=== PATIENT | male | born 1950 | race Caucasian/White ===

== ENCOUNTER 2024-02-04 15:03 | Emergency (ER) | payer MEDICARE, SELFPAY ==
[2024-02-04] VITALS (7 sets, daily range): BP systolic 73–114; BP diastolic 47–59; PULSE 63–105; RESP 18–20; TEMP 36.6; O2SAT 91–100
--- NOTE | ~2024-02-04 | CT_ITS ---
EXAMINATION: CT lumbar spine wo con DATE: 02/04/2024 15:46 INDICATION: Fall. Right low back pain. TECHNIQUE: Computed tomography (CT) of the lumbar spine was performed without intravenous contrast. A utomated exposure control and iterative reconstruction technique were employed. Exam dose: 505.06 mG y-cm total exam DLP. COMPARISON: None FINDINGS: Normal alignment the lumbar spine. No fracture or bone destruction, spondylolysis or spondy lolisthesis. Lumbar and lumbosacral interspaces appear relatively well preserved. There is degenerative spurring o f the vertebral bodies. No sacral fracture is noted. The sacroiliac joints are intact. No lumbar spine herniated disc or significant impingement upon the dural sac or spinal nerve roots is detected. Incidental note is extensive diverticulosis of the sigmoid colon colon. There is prominent abdominal aortic calcification, prominent calcification at the origin of the demetrius c artery, severe calcification of the origin and proximal aspect of the superior mesenteric artery. N o abdominal aortic aneurysm.. IMPRESSION: The lumbar spine fracture Reviewed, dictated and finalized at [facility] Reviewed, dictated and finalized at [facility]. RANCE RISK ANALYST IMPRESSION: The lumbar spine fracture
--- NOTE | ~2024-02-04 | CT_ITS ---
EXAMINATION: CT brain wo con DATE: 02/04/2024 15:47 INDICATION: Fall, struck right parietal area. TECHNIQUE: Computed tomography (CT) of the head was performed without intravenous contrast. The mA wa s adjusted according to patient size. Iterative reconstruction technique was employed. Exam dose: 68 1.00 mGy-cm total exam DLP. COMPARISON: None FINDINGS: There is a lucent lesion in the posterior right parietal bone with sclerotic margins, sugge sting benign process. No fracture or bone destruction of the cranial vault is noted otherwise. There is mild right parietal cephalohematoma. No coup or contrecoup intracranial injury is noted. No intracranial mass lesion or hemorrhage or cerebrovascular accident, midline shift or mass effect i s noted. There is mild central and cortical cerebral and cerebellar volume loss. No subdural or epidural hematoma. There is mild mucoperiosteal thickening of the left maxillary antrum. The paranasal sinuses and masto id air cells are otherwise normally developed and aerated. IMPRESSION: Small right parietal cephalohematoma; no skull fracture or acute intracranial finding Reviewed, dictated and finalized at [facility] Reviewed, dictated and finalized at [facility]. S DEVELOPMENT COORDINATOR IMPRESSION: Small right parietal cephalohematoma; no skull fracture or acute i ntracranial finding
[2024-02-04] MEDS: MORPHINE SULFATE (*CRX) 4 MG/ML INJ IM (15:58)
[2024-02-04] MEDS: KETOROLAC (*BKC) 60 MG/2 ML VIAL IM (15:59)
[2024-02-04] MEDS: Please add drug allergy info to patient profile. 1 EACH XX (16:00)
--- NOTE | 2024-02-04 16:04 | ED.FALL ---
HPI - Fall General Chief Complaint: Fall Stated Complaint: fall down 10 stairs, no loc Source: patient Mode of arrival: ambulatory Limitations: no limitations History of Present Illness HPI Narrative: patient is 73-year-old male with significant past medical history that presents today with multiple injuries from a fall. Patient states that he was walking down stairs and he fell and he was pulling a box and hit his head on the ground and hit the right side of his lumbar spine. To the left of his lumbar spine he has a giant hematoma has getting larger. He also has some concussion symptoms and he has a large hematoma to the left of the spine. he has also hematoma on the right side of his head along with some scratches and bruising around the right eye Orbital bone. MD complaint: fall Onset (ago): hour(s) Fall from: standing Fall witnessed: yes, by family Place fall occurred: home Loss of consciousness: none Length of LOC: second(s) Prolonged down time: no Symptoms prior to fall: none Context: tripped/slipped Location of injury: head Location of injury - extremities: Bilateral: hand Severity: moderate Severity scale (1-10): 6 Quality: stabbing and aching Associated symptoms (after fall): headache Related Data Home Medications ?Medication ?Instructions ?Recorded ?Confirmed ?Last Taken ?Type amlodipine 10 mg tablet mg 02/04/24 Unknown History atorvastatin 40 mg tablet mg 02/04/24 Unknown History escitalopram oxalate 10 mg tablet mg 02/04/24 Unknown History losartan 100 mg tablet mg 02/04/24 Unknown History meloxicam 15 mg tablet mg 02/04/24 Unknown History meloxicam 7.5 mg tablet mg 02/04/24 Unknown History metoprolol succinate 50 mg mg PO 02/04/24 Unknown History tablet,extended release 24 hr Allergies Allergy/AdvReac Type Severity Reaction Status Date / Time cats Allergy Mild Rash Uncoded 02/04/24 15:48 Review of Systems Review of Systems: All systems reviewed & are unremarkable except as noted in HPI and below Constitutional: Constitutional: Reports as per HPI Eyes: Eyes: Reports no additional eye complaints ENT: Reports system reviewed and no additional complaints, except as documented Cardiovascular: Cardiovascular: Reports no additional cardiovascular complaints Respiratory: Respiratory: Reports no additional respiratory complaints Gastrointestinal: Gastrointestinal: Reports no additional gastrointestinal complaints Genitourinary: Genitourinary: Reports no additional male genitourinary complaints Musculoskeletal: Musculoskeletal: Reports as per HPI, Reports back pain, Reports myalgias and Reports arthralgias Integumentary/Breasts: Skin/Breast: Reports system reviewed and no additional complaints, except as docu Neurologic: Reports as per HPI Psychiatric: Psychiatric: Reports no additional psychiatric complaints Endocrine: Endocrine: Reports no additional endocrine complaints Hematologic/Lymphatic: Hematologic/Lymphatic: Reports no additional hematologic/lymphatic complaints Allergic/Immunologic: Allergic/Immunologic: Reports no additional allergic/immunologic complaints Exam Const: General: healthy appearing Nutritional Appearance: well nourished Orientation/consciousness: patient oriented x3 HENMT: Head: hematoma ( right orbital area hematoma and small abrasion) Ears: external ears normal Face/Nose/Sinus: Normal external nose present Face and sinus: normal facial exam Eyes: Conjunctivae: conjunctivae normal Pupils: Equal, round and reactive pupils present EOM: EOMs intact bilaterally Neck: Neck: normal visual inspection Resp: Effort & Inspection: normal respiratory effort Cardio: Rate: regular rate Rhythm: regular rhythm GI: GI Palp: Yes Soft to palpation Back/Spine/Pelvis: Back: no CVA tenderness Skin: General skin exam: normal color Rashes: no rashes Wounds: no wounds Neuro: General: patient oriented x3 Cranial nerves: Yes Nystagmus not present Speech: normal speech Gait exam (Neuro): Normal gait present Extrem: General: normal to inspection Psych: Mental Status: mental status grossly normal Affect: normal affect Attitude: cooperative Course Vital Signs Vital signs: Vital Signs Temperature 97.9 F 02/04/24 15:04 Pulse Rate 105 H 02/04/24 15:04 Respiratory Rate 20 02/04/24 15:04 Blood Pressure 106/58 L 02/04/24 15:04 Pulse Oximetry 100 02/04/24 15:04 Oxygen Delivery Room Air 02/04/24 15:04 Temperature 97.9 F 02/04/24 15:04 Pulse Rate 63 02/04/24 16:47 Respiratory Rate 18 02/04/24 16:47 Blood Pressure 103/59 L 02/04/24 16:47 Pulse Oximetry 93 02/04/24 16:47 Oxygen Delivery Room Air 02/04/24 16:47 MDM - Fall MDM Narrative Medical decision making narrative: patient had a pretty bad fall on his the [place] large hematoma on the left side in between his ribs and his sacrum to the left of the lumbar spine. His bout of 10 x 10 area of hematoma. Will get CT lumbar spine so will get a good look at the hematoma plus his lumbar spine as well. He is having some spinal tenderness. Also do a head CT while were doing the CT is spine because he has a head injury around his right overall area he has a hematoma and hit his head when he fell down. Who was some morphine and Toradol for the pain. Differential Diagnosis Differential diagnosis: Likely concussion without loss of consciousness and other ( Fall) Medical Records Attestation: I reviewed the patient's medical records. Lab Data Attestation: I reviewed the patient's lab results. Discharge Plan Discharge Clinical Impression: Fall, Head injury, Injury of lumbar spine Patient Disposition: Home, Self-Care Condition: Stable Instructions: Contusion in Adults (ED) Patient Language: Martiniquais Prescriptions: New hydrocodone-acetaminophen 5-325 mg tablet 1 tablet PO Q8H PRN (Reason: pain) Qty: 14 0RF ibuprofen 800 mg tablet 800 mg PO TID PRN (Reason: pain) Qty: 30 0RF No Action atorvastatin 40 mg tablet metoprolol succinate 50 mg tablet extended release 24 hr PO meloxicam 15 mg tablet meloxicam 7.5 mg tablet amlodipine 10 mg tablet losartan 100 mg tablet escitalopram oxalate 10 mg tablet Follow-up/Referrals: Jinny,Rashi Burgos MD [Primary Care Provider] - Time of Disposition: 17:10
[2024-02-04] MEDS: SODIUM CHLORIDE 0.9% IV 1,000 ML 999 ML IV CONT (16:37)
== END 2024-02-04 17:15 | disposition home or self-care (01) ==
PROVIDERS: Emergency Provider Family Medicine; PCP Family Medicine
DX: S39.92XA Unspecified injury of lower back, initial encounter (principal); S09.90XA Unspecified injury of head, initial encounter; W10.9XXA Fall (on) (from) unspecified stairs and steps, initial encounter
CPT/HCPCS: 70450; 72131; 96360; 96372; 99284; J1885; J2270; J7030

== ENCOUNTER 2024-02-13 09:54 | Emergency (ER) | payer MEDICARE, SELFPAY ==
[2024-02-13] VITALS (49 sets, daily range): BP systolic 91–144; BP diastolic 59–98; PULSE 100–141; RESP 11–23; TEMP 36.6; O2SAT 88–97
--- NOTE | ~2024-02-13 | CT_ITS ---
Clinical Indication: Status post fall CT Scan of the Chest, Abdomen, and Pelvis without Contrast: Technique: Contiguous sections were acquired throughout the chest, abdomen, and pelvis without IV con trast administration. Dose reduction technique was used on this scan by utilizing automated exposure control and iterative reconstruction technique. The dose-length product (DLP) was 584.60 mGy-cm. Findings: There is no evidence of any significant mediastinal, hilar or axillary lymphadenopathy. The mediastin al soft tissues appear normal. Minimal pericardial effusion. Moderate to large bilateral pleural effusions are present. There is mild bibasilar atelectatic change . There is diffuse interstitial thickening, compatible with interstitial pulmonary edema. Few minimal groundglass opacities are also compatible with minimal pulmonary edematous change. There are acute fractures the right eighth, ninth, 10th, 11th ribs. There is segmental fracture of th e right 10th rib. The liver, spleen, pancreas, adrenals and kidneys are within normal limits. Small calcified gallstone present. There are atherosclerotic calcifications of the aorta. No lymphadenopathy. No bowel obstruction or bowel wall thickening. There is no evidence to suggest acute appendicitis. Th ere is mild central mesenteric haziness with shotty lymph nodes. Urinary bladder is unremarkable. No pelvic mass seen. No ascites. Impression: Acute fractures of right eighth, ninth, 10th, and 11th ribs, as detailed above. Moderate to large bilateral pleural effusions with interstitial and alveolar pulmonary edema. Cholelithiasis. Mild mesenteric panniculitis. Reviewed, dictated and finalized at [facility]. O TAPE DUPLICATOR Impression: Acute fractures of right eighth, ninth, 10th, and 11th ribs, as detailed above. Moderate to large bilateral pleural effusions with interstitial and alveolar pu lmonary edema. Cholelithiasis. Mild mesenteric panniculitis.
--- NOTE | 2024-02-13 10:25 | ED_ITS ---
HPI - General Adult General Chief complaint: Shortness of Breath/Dyspnea Stated complaint: shortness of breath Time Seen by Provider: 02/13/24 10:01 History of Present Illness HPI narrative: patient is a 73-year-old white male fell down stairs 10 days ago was seen in the emergency department on 02/04/2024 and bruising his side and a hematoma on his head CT of his head showed just a cephalhematoma and lumbar CT was negative. Patient started getting short of breath last 3 days hurts to lay flat or more likely it is short of breath when he is laying flat. Gets dyspnea on exertion when he is trying to carry groceries a asked to stop to catch his breath is normal +2 swelling of his lower extremities. since being seen in the emergency room patient has developed bruising over the front of his abdomen the swelling on the back of his right lumbar area as decreased in size denies any cough when he takes a deep breath he has some right lateral chest wall pain. He is always has a runny nose he has been a little constipated since taking pain medicine he has had no swelling in his +2 edema in his lower extremities. Feels like he can not take a deep breath denies any fever sore throat problems voiding eating or drinking bleeding. Denies any dizziness or lightheadedness palpitations weakness or numbness. Does not have any history of heart lung kidney or liver disease or thyroid disease says he has arthritis all over. Denies any other Related Data Home Medications ?Medication ?Instructions ?Recorded ?Confirmed ?Last Taken ?Type amlodipine 10 mg tablet 10 mg PO DAILY 02/04/24 02/13/24 Unknown History atorvastatin 40 mg tablet 40 mg PO QPM 02/04/24 02/13/24 Unknown History escitalopram oxalate 10 mg tablet 10 mg PO DAILY 02/04/24 02/13/24 Unknown History losartan 100 mg tablet 100 mg PO DAILY 02/04/24 02/13/24 Unknown History meloxicam 15 mg tablet mg 02/04/24 Unknown History meloxicam 7.5 mg tablet mg 02/04/24 Unknown History metoprolol succinate 50 mg 50 mg PO DAILY 02/04/24 02/13/24 Unknown History tablet,extended release 24 hr Allergies Allergy/AdvReac Type Severity Reaction Status Date / Time cats Allergy Mild Rash Uncoded 02/13/24 12:58 Review of Systems 2 Review of Systems: All systems reviewed & are unremarkable except as noted in HPI and below PMFSH Comments no history of atrial fib or heart disease or lung disease Exam 2 Narrative: ?White male patient with Mild distress.? Head normocephalic, atraumatic.? Eyes conjunctiva pink sclera nonicteric.? Extraocular movements are intact.? Ears externally normal.? Oropharynx is clear with moist mucous membranes without exudates.? Neck is supple nontender no lymphadenopathy.? Back. Right paralumbar swelling and bruising. No midline tenderness. Right posterior scapular chest wall bruising was mild tenderness. Lungs decreased breath sounds posteriorly bases..? Heart is tachycardic rate with irregularly irregular heart rhythm. without murmurs gallops or rubs.? Chest wall nontender. Abdomen is soft and nontender no hepatosplenomegaly or masses no CVA tenderness no abdominal bruits. patient has extensive bruising over the anterior is abdomen which looks old.? Extremities no cyanosis clubbing But with +2 pitting edema of his lower extremities.? Skin is warm and dry without rashes or lesions.? Neurological patient is alert and oriented x4.? Motor and sensory grossly intact.? Gait is normal. Course Vital Signs Vital signs: Vital Signs Temperature 36.6 C 02/13/24 09:54 Pulse Rate 119 H 02/13/24 09:54 Respiratory Rate 16 02/13/24 09:54 Blood Pressure 134/75 02/13/24 09:54 Pulse Oximetry 92 02/13/24 09:54 Oxygen Delivery Nasal Cannula 02/13/24 09:54 Oxygen Flow Rate 2 02/13/24 09:54 Temperature 36.6 C 02/13/24 09:54 Pulse Rate 111 H 02/13/24 22:26 Respiratory Rate 16 02/13/24 22:01 Blood Pressure 128/80 02/13/24 22:26 Pulse Oximetry 94 02/13/24 22:01 Oxygen Delivery Nasal Cannula 02/13/24 22:01 Oxygen Flow Rate 4 02/13/24 22:01 Medical Decision Making [facility] Narrative Medical decision making narrative: ?Patient placed in room: Three with his ? History and physical was performed. H&H 8.4 and 25.3 with normal WBC and platelet, coags were normal, D-dimer is 2.33.? BUN was 36 creatinine 1.54 GFR was 45 Osmo 303 the rest of CMP was normal. Troponin was elevated at 62.3 and proBNP was [address] scan of chest abdomen and pelvis without contrast Acute fractures of the right 8th 9th 10th and 11th rib moderate to large bilateral pleural effusions with interstitial and alveolar pulmonary edema cholelithiasis mild mesenteric panniculitis Independent Historian: External Source Review: Differential Dx includes but not limited to: Medications were Reviewed: Medications given: 10 mg of Cardizem IV bolus and then a Cardizem drip at 5 milligrams/hour Independently Interpreted by me:EKG showed atrial fib with rapid ventricular response left bundle branch block interventricular conduction delay at a rate of 124 a normal axis impression abnormal EKG as independently interpreted by me. Shared decision Making: Social Situation Impacting Patients Care: Discussed with hospitalist at [facility] in [facility] accept transfer they will call us with the bed when available. DISCHARGE DIAGNOSIS: congestive heart failure with bilateral pleural effusion atrial fib new onset with RVR anemia DISPOSITION : transfer CONDITION AT DISCHARGE: stable Vital Signs Vital Signs: Vital Signs Temperature 36.6 C 02/13/24 09:54 Pulse Rate 119 H 02/13/24 09:54 Respiratory Rate 16 02/13/24 09:54 Blood Pressure 134/75 02/13/24 09:54 Pulse Oximetry 92 02/13/24 09:54 Oxygen Delivery Nasal Cannula 02/13/24 09:54 Oxygen Flow Rate 2 02/13/24 09:54 Temperature 36.6 C 02/13/24 09:54 Pulse Rate 111 H 02/13/24 22:26 Respiratory Rate 16 02/13/24 22:01 Blood Pressure 128/80 02/13/24 22:26 Pulse Oximetry 94 02/13/24 22:01 Oxygen Delivery Nasal Cannula 02/13/24 22:01 Oxygen Flow Rate 4 02/13/24 22:01 Lab Data 02/13/24 10:39 02/13/24 10:39 Labs: Lab Results 02/13/24 02/13/24 Range/Units 10:39 14:11 WBC 7.2 (4.8-10.8) K/mm3 RBC 2.65 L (4.70-6.10) M/mm3 Hgb 8.4 L (12.4-15.3) g/dL Hct 25.3 L (37.0-46.0) % MCV 95.5 (78.0-102.0) fL MCH 31.7 H (27.0-31.0) pg MCHC 33.2 (32-36) g/dL RDW 13.3 (11.6-14.4) % Plt Count 278 (150-420) K/mm3 MPV 9.2 (8.7-11.0) fl PT 11.9 (9.50-12.1) Seconds INR 1.1 APTT 30.1 (23.9-30.70) Sec D-Dimer 2.33 H* (0.19-0.50) mg/L Sodium 142 (136-145) mmol/L Potassium 4.0 (3.5-5.1) mmol/L Chloride 105 (98-108) mmol/L Carbon Dioxide 24 (21-32) mmol/L Anion Gap 13 H (4-12) mmol/L BUN 36 H (7-18) mg/dL Creatinine 1.54 H (0.70-1.30) mg/dL Estim Creat Clear Calc 35 ml/min Estimated GFR 45 L (59 - ) Glucose 112 H (70-99) mg/dL Calculated Osmolality 303 H (285-295) mOsm/kg Calcium 9.2 (8.5-10.1) mg/dL Total Bilirubin 0.6 (0.00-1.00) mg/dL AST 15 (15-37) U/L ALT 18 (16-63) U/L Alkaline Phosphatase 73 (46-116) U/L Troponin I 62.3 H* 71.2 H* (0.00-60.4) ng/L NT-Pro-B Natriuret Pep 4138 H (0-125) pg/mL Total Protein 7.4 (6.4-8.2) g/dL Albumin 3.3 L (3.4-5.0) g/dL TSH 1.74 (0.36-3.74) uIU/mL Discharge Plan Discharge Clinical Impression: Atrial fibrillation with rapid ventricular response, Bilateral pleural effusion, Multiple fractures of rib involving four or more ribs Congestive heart failure Qualifiers: Heart failure type: unspecified Heart failure chronicity: unspecified Qualified Code(s): I50.9 - Heart failure, unspecified Anemia Qualifiers: Anemia type: unspecified type Qualified Code(s): D64.9 - Anemia, unspecified Patient Disposition: Acute Care Hospital Condition: Stable Additional Instructions: Transferred to [facility] via ground ambulance Patient Language: Azerbaijani Prescriptions: No Action atorvastatin 40 mg tablet 40 mg PO QPM metoprolol succinate 50 mg tablet extended release 24 hr 50 mg PO DAILY meloxicam 15 mg tablet meloxicam 7.5 mg tablet amlodipine 10 mg tablet 10 mg PO DAILY losartan 100 mg tablet 100 mg PO DAILY escitalopram oxalate 10 mg tablet 10 mg PO DAILY hydrocodone-acetaminophen 5-325 mg tablet 1 tablet PO Q8H PRN (Reason: pain) Qty: 14 0RF ibuprofen 800 mg tablet 800 mg PO TID PRN (Reason: pain) Qty: 30 0RF Follow-up/Referrals: UNKNOWN,DOCTOR [Non-Staff] - Time of Disposition: 22:32
--- NOTE | 2024-02-13 10:31 | ECG_ITS ---
Test Date: 2024-02-13 10:46:27 Measurements Intervals [place] Rate: 124 P: 0 NV: 0 QRS: 19 QRSD: 154 T: 71 QT: 336 QTc: 483 Interpretive Statements ATRIAL FIBRILLATION WITH RAPID VENTRICULAR RESPONSE LEFT BUNDLE BRANCH BLOCK No previous ECG available for comparison Electronically Signed On 02-13-2024 22:45:16 HEAD OF SALES PROMOTION by Nader León M.D.
[2024-02-13 10:45] LABS: Hematocrit 25.3 % (37.0-46.0); Hemoglobin 8.4 g/dL (12.4-15.3); Mean Corpuscular HGB Conc 33.2 g/dL (32-36); Mean Corpuscular Hemoglobin 31.7 pg (27.0-31.0); Mean Corpuscular Volume 95.5 fL (78.0-102.0); Mean Platelet Volume 9.2 fl (8.7-11.0); Platelet Count Result 278 K/mm3 (150-420); Red Blood Count 2.65 M/mm3 (4.70-6.10); Red Cell Distribution Width 13.3 % (11.6-14.4); White Blood Count 7.2 K/mm3 (4.8-10.8)
[2024-02-13 11:03] LABS: INR 1.1; Partial Thromboplastin Time 30.1 Sec (23.9-30.70); Prothrombin Time 11.9 Seconds (9.50-12.1)
[2024-02-13 11:06] LABS: D Dimer 2.33 mg/L (0.19-0.50)
[2024-02-13 11:14] LABS: Alanine Aminotransferase 18 U/L (16-63); Anion Gap 13 mmol/L (4-12); Aspartate Amino Transferase 15 U/L (15-37); Bilirubin,Total 0.6 mg/dL (0.00-1.00); Blood Urea Nitrogen 36 mg/dL (7-18); Calcium 9.2 mg/dL (8.5-10.1); Carbon Dioxide 24 mmol/L (21-32); Chloride 105 mmol/L (98-108); Estimated CRCL calculation 35 ml/min; Estimated Glomerular Filt Rate 45; Glucose 112 mg/dL (70-99); Osmolality Calculated 303 mOsm/kg (285-295); Sodium 142 mmol/L (136-145); Troponin I 62.3 ng/L (0.00-60.4)
[2024-02-13 11:15] LABS: Albumin Level 3.3 g/dL (3.4-5.0); Alkaline Phosphatase 73 U/L (46-116); Total Protein 7.4 g/dL (6.4-8.2)
[2024-02-13 11:17] LABS: NT Pro B Type Natriuretic Pept 4138 pg/mL (0-125)
[2024-02-13 11:22] LABS: Thyroid Stimulating Hormone 1.74 uIU/mL (0.36-3.74)
--- NOTE | 2024-02-13 11:23 | PC.NURSE ---
Patient taken down to CT
--- NOTE | 2024-02-13 11:46 | PC.NURSE ---
patient back in room from CT.
[2024-02-13] MEDS: dilTIAZem HCl INJ 25 MG/5 ML VIAL 20 MG IV PUSH (11:50)
[2024-02-13 14:37] LABS: Troponin I 71.2 ng/L (0.00-60.4)
[2024-02-13] MEDS: dilTIAZem 100 MG/100 ML 100 MG/100 ML BAG IV CONT ×2 (14:39→22:26)
--- NOTE | 2024-02-13 15:03 | PC.NURSE ---
patient provided meal tray per ERP request
--- NOTE | 2024-02-13 17:03 | PC.NURSE ---
PER ERP decrease Cardizem drip down to 3mg/hr
--- NOTE | 2024-02-13 18:54 | PC.NURSE ---
ASSUMED CARE. REPORT RECEIVED FROM GALILEA ROLLINS
--- NOTE | 2024-02-13 19:38 | PC.NURSE ---
PATIENT HAS BEEN MOVED FROM ROOM 7 TO ROOM 1. PATIENT CONTINUES TO HAVE OXYGEN AT 15L NRB.
--- NOTE | 2024-02-13 19:41 | PC.NURSE ---
PATIENT APPEARS TO BE SLEEPING. RESP EVEN AND UNLABORED. CALL LIGHT IN REACH.
--- NOTE | 2024-02-13 21:49 | PC.NURSE ---
REQUESTED ANOTHER CARDIZEM BAG FOR INFUSION FROM DR JIMENEZ
--- NOTE | 2024-02-13 22:30 | PC.NURSE ---
UPDATED PATIENT ON TRANSFER
--- NOTE | 2024-02-13 22:50 | PC.NURSE ---
patient started to develope stridor. er provider notified. order for duoneb given
--- NOTE | 2024-02-14 | ECG_ITS ---
Test Date: 2024-02-14 00:08:24 Measurements Intervals [place] Rate: 126 P: 0 NC: 0 QRS: 4 QRSD: 149 T: 120 QT: 335 QTc: 485 Interpretive Statements ATRIAL FIBRILLATION WITH RAPID VENTRICULAR RESPONSE LEFT BUNDLE BRANCH BLOCK Compared to ECG 02/13/2024 10:46:27 NO SIGNIFICANT CHANGES Electronically Signed On 02-16-2024 12:24:38 ENVIRONMENTAL ENGINEER SCIENTIST by Warren Alarcon M.D.
== END 2024-02-13 23:28 | disposition short-term general hospital (02) ==
PROVIDERS: Emergency Provider Emergency Medicine; PCP Family Medicine
DX: I50.9 Heart failure, unspecified (principal); J90 Pleural effusion, not elsewhere classified; I48.91 Unspecified atrial fibrillation; D64.9 Anemia, unspecified; R06.02 Shortness of breath; S22.41XD Multiple fractures of ribs, right side, subsequent encounter for fracture with routine healing; W10.9XXD Fall (on) (from) unspecified stairs and steps, subsequent encounter
CPT/HCPCS: 36415; 71250; 74176; 80053; 83880; 84443; 84484; 85027; 85380; 85610; 85730; 93005; 96365; 96366; 96376; 99285

== ENCOUNTER 2024-02-17 00:06 | Emergency (ER) | payer MEDICARE, SELFPAY ==
[2024-02-17] VITALS (22 sets, daily range): BP systolic 62–142; BP diastolic 48–78; PULSE 71–87; RESP 12–23; TEMP 36.4–36.6; O2SAT 92–100
--- NOTE | ~2024-02-17 | CT_ITS ---
CT chest abdomen pelvis w con Ordering provider: Samuel Cash MD History: 73 years Male with . Shock . Comparison: February 13, 2024 Technique: CT chest with IV contrast. CT abdomen and pelvis CT abdomen and pelvis with IV and with or al contrast. Radiation reduction technique utilized.The dose-length product was 963.98 mGy-cm. 100 mL Omnipaque 350 was given IV. FINDINGS: CHEST: --VISUALIZED THORACIC INLET: Normal. --MEDIASTINUM: Aorta/coronary arteries: Mild atheromatous disease. Heart/other: The heart is not enlarged. Lymph nodes: No mediastinal or hilar adenopathy. --LUNGS: No pulmonary nodules or masses. Large right pleural effusion with adjacent atelectasis which is increased compared to previous study. Increased density seen in the effusion which may indicate b lood products.0. Minimal left pleural effusion with adjacent atelectasis... No pneumothorax. --MUSCULOSKELETAL: Soft tissues: The superficial soft tissues are normal. Bones: Age appropriate degenerative changes of the spine. No suspicious bony lytic or sclerotic lesio ns. Multiple acute rib fractures are seen in the right lower thorax. Old healed rib fractures are see n in the right upper thorax. Opacification in the anterior longitudinal ligament is seen. Ankylosing spondylitis is not excluded. ABDOMEN/PELVIS: --MUSCULOSKELETAL: Bones: Age appropriate degenerative changes of the spine. No suspicious bony lytic or sclerotic lesio ns. Bilateral sacroiliitis with fusion seen bilaterally bilateral hip osteoarthritic changes. Superficial soft tissues: Bilateral fat containing inguinal hernias. Otherwise, The superficial soft tissues are normal. --UPPER ABDOMINAL ORGANS: Liver: Fat infiltration. Gallbladder: Cholelithiasis. Spleen: Normal. Stomach/duodenum: Normal. Pancreas: Normal. Adrenals: Normal. Kidneys: Normal. --PELVIC ORGANS: The bladder shows slightly thickened wall. No bladder stones. --BOWEL AND MESENTERY: Colon: No evidence of diverticulitis. Slightly thickened wall of the sigmoid colon is seen. Colitis i s not excluded.. Normal appendix. Small Bowel: Normal. No obstruction. Peritoneum/mesentery: No free air or free fluid. No mesenteric lymphadenopathy. --RETROPERITONEUM: Mild atheromatous disease of the abdominal aorta. No retroperitoneal lymphadenop athy. IMPRESSION: CHEST: Right large pleural effusion with adjacent atelectasis. Minimal left pleural effusion. ABDOMEN/PELVIS: 1. Fat infiltration of the liver. 2. Cholelithiasis. 3. Slightly thickened wall of the sigmoid colon which may indicate colitis. Follow-up and clinical c orrelation advised. Reviewed, dictated and finalized at location A. NER ANIMAL IMPRESSION: CHEST: Right large pleural effusion with adjacent atelectasis. Minimal left pleural effusion. ABDOMEN/PELVIS: 1. Fat infiltration of the liver. 2. Cholelithiasis. 3. Slightly thickened wall of the sigmoid colon which may indicate colitis. Fo llow-up and clinical correlation advised.
--- NOTE | ~2024-02-17 | XR_ITS ---
XR chest 1V portable DATE: 02/17/2024 01:43 INDICATION: Weakness TECHNIQUE: Portable upright AP chest on 02/17/2024 at 0141 hours COMPARISON: 02/13/2024 CT chest abdomen pelvis FINDINGS: Heart size appears within normal range. There is aortic arch calcification. There are infiltrates in the mid and lower lung zones and mild bilateral pleural effusions, right gre ater than left. Pulmonary vascularity appears mildly prominent. No pneumothorax. Osteopenia. Multiple recent right rib fractures are again noted. IMPRESSION: Multiple recent right rib fractures Mild pulmonary vascular congestion, bilateral pleural effusions. Reviewed, dictated and finalized at location A. R RELATIONS COORDINATOR
--- NOTE | ~2024-02-17 | CT_ITS ---
CT brain wo con Ordering provider: Samuel Cash MD History: 73 years Male with . Recent trauma . Comparison: February 04, 2024 Technique: CT of the head without contrast. Radiation reduction technique utilized.The dose-length product was 681 mGy-cm. FINDINGS: BRAIN PARENCHYMA AND CSF SPACES: Mild leukoaraiosis and diffuse cortical atrophy. Mild atheromatous d isease. Mild ventricular dilatation. No midline shift, mass effect or hemorrhage. The brain parenchyma and CSF spaces are otherwise norm al. VISUALIZED PARANASAL SINUSES: Well aerated. MASTOIDS: Well aerated. BONES: Sclerotic lesions seen in the right parietal area unchanged. Otherwise,. The bones appear inta ct. SOFT TISSUES: Visualized nasopharynx is normal. Superficial soft tissues are normal. IMPRESSION: No acute intracranial findings. Reviewed, dictated and finalized at location A. 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
--- NOTE | 2024-02-17 00:30 | ECG_ITS ---
Test Date: 2024-02-17 00:34:16 Measurements Intervals [place] Rate: 71 P: 60 LA: 180 QRS: -49 QRSD: 121 T: 55 QT: 437 QTc: 476 Interpretive Statements SINUS RHYTHM POSSIBLE LEFT ATRIAL ENLARGEMENT [-0.1mV P WAVE IN V1/V2] POSSIBLE RIGHT VENTRICULAR CONDUCTION DELAY [RSR (QR) IN V1/V2] LEFT ANTERIOR FASCICULAR BLOCK [QRS AXIS <= -45, QR IN I, RS IN II] POSSIBLE SEPTAL MYOCARDIAL INFARCTION , OF INDETERMINATE AGE [30 ms Q WAVE IN V1/V2] MODERATE T-WAVE ABNORMALITY, CONSIDER ANTERIOR ISCHEMIA [-0.1+ mV T WAVE IN V3/V4] Compared to ECG 02/14/2024 00:08:24 Atrial fibrillation no longer present Left bundle-branch block no longer present Electronically Signed On 02-20-2024 17:53:24 BACK SIZER by Warren Alarcon M.D.
--- NOTE | 2024-02-17 00:34 | PC.NURSE ---
due to pt blood pressure upon arrival edp dr. olmstead vorb 1L NS at a bolus rate of 999mls/ hour. this rn used closed loop communication to confirm route. dose. patient. time. medication. edp aysha saldana verbalized confirmation.
[2024-02-17] MEDS: SODIUM CHLORIDE 0.9% IV 1,000 ML 999 ML IV CONT (00:36)
--- NOTE | 2024-02-17 00:39 | PC.NURSE ---
upon patient arrival to ed patient had 2 large solid bowel movements. patient aware when he is defecating at this time.
--- NOTE | 2024-02-17 01:01 | ED_ITS ---
HPI - General Adult General Chief complaint: Chest Pain Stated complaint: CP, SYNCOPAL EPISODE Time Seen by Provider: 02/17/24 00:23 History of Present Illness HPI narrative: Patient 73-year-old gentleman who presents emergency department with chief complaint of chest discomfort shortness of breath and palpitations. Patient was just discharged from [facility] yesterday the patient reports that this evening he had an episode where he felt as though his heart was beating fast the patient had some tightness in his chest and then reports that he felt as though he was going to pass out. EMS was called and the patient was found to be hypotensive and was brought to the closest facility Related Data Home Medications ?Medication ?Instructions ?Recorded ?Confirmed ?Last Taken ?Type amlodipine 10 mg tablet 10 mg PO DAILY 02/04/24 02/13/24 Unknown History atorvastatin 40 mg tablet 40 mg PO QPM 02/04/24 02/13/24 Unknown History escitalopram oxalate 10 mg tablet 10 mg PO DAILY 02/04/24 02/13/24 Unknown History losartan 100 mg tablet 100 mg PO DAILY 02/04/24 02/13/24 Unknown History meloxicam 15 mg tablet mg 02/04/24 Unknown History meloxicam 7.5 mg tablet mg 02/04/24 Unknown History metoprolol succinate 50 mg 50 mg PO DAILY 02/04/24 02/13/24 Unknown History tablet,extended release 24 hr Allergies Allergy/AdvReac Type Severity Reaction Status Date / Time cats Allergy Mild Rash Uncoded 02/13/24 12:58 Review of Systems 2 Review of Systems: A 10 system review of systems was completed on the patient and is negative except for what is stated in the HPI. Nursing and ancillary documentation was reviewed. Exam 2 Narrative: GENERAL: Well-appearing, well-nourished, and in no acute distress. HEAD: Normocephalic, atraumatic. EYES: PERRLA and EOMI. ENT: Nares clear, no rhinorrhea or epistaxis. Mucous membranes moist. NECK: Supple. CHEST: Clear to auscultation. No respiratory distress. HEART: Regular rate and rhythm. No murmur heard. Normal peripheral pulses. ABDOMEN: Soft, nontender, nondistended, normal active bowel sounds. EXTREMITIES: Normal range of motion. No edema. SKIN: Warm, dry, no rash. NEURO: No focal deficits. Alert and oriented x3. PSYCH: Normal mood and affect. Course Vital Signs Vital signs: Vital Signs Temperature 36.4 C 02/17/24 00:05 Pulse Rate 72 02/17/24 00:05 Respiratory Rate 20 02/17/24 00:05 Blood Pressure 62/48 L 02/17/24 00:05 Pulse Oximetry 99 02/17/24 00:05 Oxygen Delivery Room Air 02/17/24 00:05 Temperature 36.4 C 02/17/24 00:05 Pulse Rate 81 02/17/24 04:40 Respiratory Rate 15 02/17/24 04:40 Blood Pressure 128/74 02/17/24 04:40 Pulse Oximetry 94 02/17/24 04:40 Oxygen Delivery Room Air 02/17/24 00:33 Medical Decision Making MDM Narrative Medical decision making narrative: Differential diagnosis includes pneumonia, pleural effusion, hypovolemia, CT scan of the chest showed a increase in size of the pleural effusion with possible blood within the fluid. There was no active extravasation of contrast. The patient was fluid resuscitated in the emergency department and is doing much better at this time hemoglobin is 7.2 this is actually lower than whenever he was seen at [facility] on the case was discussed with Dr. Nurse lovelace and was accepted back to [facility]. COVID flu and RSV were negative Vital Signs Vital Signs: Vital Signs Temperature 36.4 C 02/17/24 00:05 Pulse Rate 72 02/17/24 00:05 Respiratory Rate 20 02/17/24 00:05 Blood Pressure 62/48 L 02/17/24 00:05 Pulse Oximetry 99 02/17/24 00:05 Oxygen Delivery Room Air 02/17/24 00:05 Temperature 36.4 C 02/17/24 00:05 Pulse Rate 81 02/17/24 04:40 Respiratory Rate 15 02/17/24 04:40 Blood Pressure 128/74 02/17/24 04:40 Pulse Oximetry 94 02/17/24 04:40 Oxygen Delivery Room Air 02/17/24 00:33 Lab Data 02/17/24 01:49 02/17/24 01:49 Labs: Lab Results 02/17/24 Range/Units 01:49 WBC 12.6 H (4.5-10.0) K/mm3 RBC 2.26 L (4.6-6.20) M/mm3 Hgb 7.2 L (14.0-18.0) g/dL Hct 21.9 L (42.0-52.0) % MCV 96.9 (80-100) fl MCH 31.9 (26-34) pg MCHC 32.9 (32-36) g/dl RDW 13.5 (11.5-14.5) % Plt Count 287 (150-375) k/mm3 MPV 10.0 (7.4-10.4) fl Immature Gran % (Auto) 0.6 H (0-0.5) % Neut % (Auto) 87.3 H (45.5-73.1) % Lymph % (Auto) 4.3 L (18.3-44.2) % [place] % (Auto) 6.3 (2.6-8.5) % Eos % (Auto) 1.3 (0-4.4) % Baso % (Auto) 0.2 (0.2-1.2) % Lymph # (Auto) 0.54 L (0.9-3.2) K/mm3 [place] # (Auto) 0.8 H (0.1-0.6) K/mm3 Eos # (Auto) 0.2 (0-0.3) K/mm3 Baso # (Auto) 0.0 (0.0-0.1) K/mm3 Abs Immat Gran (auto) 0.08 H (0.00-0.031) K/mm3 Absolute Neuts (auto) 11.1 H (1.3-6.7) K/mm3 Absolute Nucleated RBC 0.000 (0.0-0.012) K/mm3 Nucleated RBC % 0.0 (0.0-0.2) % Platelet Estimate Slightly increased (Adequate) Hypochromasia 1+ Anisocytosis 1+ Schistocytes None seen PT 16.2 H (11.1-14.7) Seconds INR 1.3 APTT 29.5 (22.3-36.8) Seconds Sodium 136 L (137-145) mmol/L Potassium 4.4 (3.4-5.0) mmol/L Chloride 109 H (98-107) mmol/L Carbon Dioxide 22 (22-30) mmol/L Anion Gap 5 (4-12) mmol/L BUN 28 H (9-20) mg/dL Creatinine 1.20 (0.7-1.3) mg/dL Estim Creat Clear Calc 44 ml/min Estimated GFR 59 (59 - ) Glucose 124 H (65-110) mg/dL Lactic Acid 2.5 H (0.7-2.0) mmol/L Calcium 8.6 (8.4-10.2) mg/dL Magnesium 1.9 (1.6-2.3) mg/dL Total Bilirubin 0.5 (0.2-1.3) mg/dL AST 21 (17-59) U/L ALT 14 (6-50) U/L Alkaline Phosphatase 67 (38-126) U/L Troponin I 0.048 H* (0.000-0.034) ng/mL NT-Pro-B Natriuret Pep 1230 H (19.9-100) pg/mL Total Protein 6.0 L (6.3-8.2) g/dL Albumin 3.3 L (3.5-5.1) g/dL Lipase 118 (23-300) U/L Influenza A (RT-PCR) Negative (Negative) Influenza B (RT-PCR) Negative (Negative) RSV (RT-PCR) Negative (Negative) SARS-CoV-2 RNA (RT-PCR) Negative (Negative) Critical Care Time Critical Care Time Critical Care Time: Yes Total Critical Care Time: 30 Discharge Plan Discharge Clinical Impression: Near syncope, Hypovolemia, Pleural effusion, Multiple fractures of ribs Patient Disposition: Acute Care Hospital Condition: Stable Patient Language: French Prescriptions: No Action atorvastatin 40 mg tablet 40 mg PO QPM metoprolol succinate 50 mg tablet extended release 24 hr 50 mg PO DAILY meloxicam 15 mg tablet meloxicam 7.5 mg tablet amlodipine 10 mg tablet 10 mg PO DAILY losartan 100 mg tablet 100 mg PO DAILY escitalopram oxalate 10 mg tablet 10 mg PO DAILY hydrocodone-acetaminophen 5-325 mg tablet 1 tablet PO Q8H PRN (Reason: pain) Qty: 14 0RF ibuprofen 800 mg tablet 800 mg PO TID PRN (Reason: pain) Qty: 30 0RF Follow-up/Referrals: Aung Hernandez DO [Primary Care Provider] - Time of Disposition: 05:31
[2024-02-17 02:01] LABS: Basophils Percent Auto 0.2 % (0.2-1.2); Eosinophils Absolute Auto 0.2 K/mm3 (0-0.3); Eosinophils Percent Auto 1.3 % (0-4.4); Hematocrit 21.9 % (42.0-52.0); Hemoglobin 7.2 g/dL (14.0-18.0); Immature Granulocyte Absolute 0.08 K/mm3 (0.00-0.031); Immature Granulocyte Percent A 0.6 % (0-0.5); Lymphocytes Absolute Auto 0.54 K/mm3 (0.9-3.2); Lymphocytes Percent Auto 4.3 % (18.3-44.2); Mean Corpuscular HGB Conc 32.9 g/dl (32-36); Mean Corpuscular Hemoglobin 31.9 pg (26-34); Mean Corpuscular Volume 96.9 fl (80-100); Monocytes Absolute Auto 0.8 K/mm3 (0.1-0.6); Monocytes Percent Auto 6.3 % (2.6-8.5); Neutrophils Absolute Auto 11.1 K/mm3 (1.3-6.7); Neutrophils Percent Auto 87.3 % (45.5-73.1); Platelet Count Result 287 k/mm3 (150-375); Red Blood Count 2.26 M/mm3 (4.6-6.20); Red Cell Distribution Width 13.5 % (11.5-14.5); White Blood Count 12.6 K/mm3 (4.5-10.0)
[2024-02-17 02:18] LABS: Alanine Aminotransferase 14 U/L (6-50); Albumin Level 3.3 g/dL (3.5-5.1); Alkaline Phosphatase 67 U/L (38-126); Anion Gap 5 mmol/L (4-12); Aspartate Amino Transferase 21 U/L (17-59); Bilirubin,Total 0.5 mg/dL (0.2-1.3); Blood Urea Nitrogen 28 mg/dL (9-20); Calcium 8.6 mg/dL (8.4-10.2); Carbon Dioxide 22 mmol/L (22-30); Chloride 109 mmol/L (98-107); Estimated CRCL calculation 44 ml/min; Estimated Glomerular Filt Rate 59; Glucose 124 mg/dL (65-110); Lactic Acid Reflex 2.5 mmol/L (0.7-2.0); Lipase 118 U/L (23-300); Magnesium 1.9 mg/dL (1.6-2.3); Potassium 4.4 mmol/L (3.4-5.0); Sodium 136 mmol/L (137-145)
[2024-02-17 02:20] LABS: Anisocytosis 1+; Hypochromasia 1+; Platelet Estimate Slightly Increased (Adequate); Schistocytes None Seen
[2024-02-17 02:24] LABS: INR 1.3; Prothrombin Time 16.2 Seconds (11.1-14.7)
[2024-02-17 02:25] LABS: Partial Thromboplastin Time 29.5 Seconds (22.3-36.8)
[2024-02-17 02:34] LABS: Influenza A QL RT-PCR Negative (Negative); Influenza B QL RT-PCR Negative (Negative); RSV RNA, RT-PCR Negative (Negative); SARS-CoV-2 RNA PCR Negative (Negative)
[2024-02-17 02:38] LABS: Troponin I 0.048 ng/mL (0.000-0.034)
[2024-02-17 02:40] LABS: NT Pro B Type Natriuretic Pept 1230 pg/mL (19.9-100)
[2024-02-17 04:54] LABS: Reflex Lactic Acid Yes or No Add Lactic
[2024-02-17 08:01] LABS: Add Urine Microscopic? YES; Appearance Urine Clear (Clear); Bilirubin Urine Negative (Negative); Blood Urine Negative (Negative); Color Urine Yellow (Yellow); Glucose Urine UA Negative (Negative); Ketones Urine Negative (Negative); Leukocyte Esterase Ur Negative LEU/UL (Negative); Nitrate Urine Negative (Negative); Protein Urine Negative (Negative); Specific Grav Ur > 1.045 (1.001-1.035); pH Urine 6.5 (5.0-9.0)
[2024-02-17 08:13] LABS: Lactic Acid 1.3 mmol/L (0.7-2.0)
== END 2024-02-17 12:40 | disposition short-term general hospital (02) ==
PROVIDERS: Emergency Provider Emergency Medicine; PCP Family Medicine
DX: J90 Pleural effusion, not elsewhere classified (principal); E86.1 Hypovolemia; R55 Syncope and collapse; S22.41XA Multiple fractures of ribs, right side, initial encounter for closed fracture; Z20.822 Contact with and (suspected) exposure to COVID-19; Z79.899 Other long term (current) drug therapy; X58.XXXA Exposure to other specified factors, initial encounter; K80.20 Calculus of gallbladder without cholecystitis without obstruction; K76.0 Fatty (change of) liver, not elsewhere classified; R94.31 Abnormal electrocardiogram [ECG] [EKG]; I44.0 Atrioventricular block, first degree
CPT/HCPCS: 36415; 70450; 71045; 71260; 74177; 80053; 81001; 83605; 83690; 83735; 83880; 84484; 85025; 85610; 85730; 87637; 93005; 96360; 99285; J7030; Q9967

== ENCOUNTER 2024-02-27 16:45 | Emergency (ER) | payer MEDICARE, SELFPAY ==
[2024-02-27 16:45] VITALS: BP 137/58; PULSE 71; RESP 16; TEMP 36.5; O2SAT 98
[2024-02-27 17:00] VITALS: BP 149/70; PULSE 69; RESP 17; O2SAT 98
[2024-02-27 17:30] VITALS: BP 148/55; PULSE 68; RESP 18; O2SAT 99
[2024-02-27] MEDS: MAGNESIUM HYDROXIDE SUSP 30 ML UDC PO (17:32)
[2024-02-27] MEDS: polyethylene glycoL 3350 17 GM POWD.PACK PO (17:32)
[2024-02-27] MEDS: BISACODYL 10 MG SUPPOSITORY RECTAL (17:40)
[2024-02-27 18:00] VITALS: BP 167/79; PULSE 68; RESP 17; O2SAT 99
--- NOTE | 2024-02-27 18:21 | ED_ITS ---
HPI - General Adult General Chief complaint: Unspecified Stated complaint: constipation Time Seen by Provider: 02/27/24 17:00 Source: patient Mode of arrival: ambulatory Limitations: no limitations History of Present Illness HPI narrative: patient is a 73-year-old male with a significant past medical history that presents today for constipation. Patient been constipated for 2 days now. Patient says he has not passed any stool but he has been passing gas. He says he feels like there is a large ball that was blocking the past wafer his stool. He said he is taking relax but only taking MiraLax 1 time earlier today and that is all. He is not taking anything else to add. complaint: Constipation Onset (ago): day(s) (2 days ) Location: buttocks Radiation: abdomen Severity: mild Severity scale (1-10): 3 Quality: stabbing Pain Consistency: constant and intermittent Relieving factors: none Exacerbating factors: none Associated symptoms: denies other symptoms Treatments prior to arrival: none Related Data Home Medications ?Medication ?Instructions ?Recorded ?Confirmed ?Last Taken ?Type amlodipine 10 mg tablet 10 mg PO DAILY 02/04/24 02/13/24 Unknown History atorvastatin 40 mg tablet 40 mg PO QPM 02/04/24 02/13/24 Unknown History escitalopram oxalate 10 mg tablet 10 mg PO DAILY 02/04/24 02/13/24 Unknown History losartan 100 mg tablet 100 mg PO DAILY 02/04/24 02/13/24 Unknown History meloxicam 15 mg tablet mg 02/04/24 Unknown History meloxicam 7.5 mg tablet mg 02/04/24 Unknown History metoprolol succinate 50 mg 50 mg PO DAILY 02/04/24 02/13/24 Unknown History tablet,extended release 24 hr Allergies Allergy/AdvReac Type Severity Reaction Status Date / Time cats Allergy Mild Rash Uncoded 02/27/24 16:49 Review of Systems Review of Systems: All systems reviewed & are unremarkable except as noted in HPI and below Constitutional: Constitutional: Reports as per HPI Eyes: Eyes: Reports no additional eye complaints ENT: Reports system reviewed and no additional complaints, except as documented Cardiovascular: Cardiovascular: Reports no additional cardiovascular complaints Respiratory: Respiratory: Reports no additional respiratory complaints Gastrointestinal: Gastrointestinal: Reports as per HPI and Reports constipation Genitourinary: Genitourinary: Reports as per HPI and Reports genital pain Musculoskeletal: Musculoskeletal: Reports as per HPI Integumentary/Breasts: Skin/Breast: Reports system reviewed and no additional complaints, except as docu Neurologic: Reports system reviewed and no additional complaints, except as documented Psychiatric: Psychiatric: Reports no additional psychiatric complaints Endocrine: Endocrine: Reports no additional endocrine complaints Hematologic/Lymphatic: Hematologic/Lymphatic: Reports no additional hematologic/lymphatic complaints Allergic/Immunologic: Allergic/Immunologic: Reports no additional allergic/immunologic complaints Exam Const: General: cooperative and healthy appearing Nutritional Appearance: average body habitus Orientation/consciousness: oriented to person Limitations: no limitations HENMT: Head: normal to inspection and No palpable skull fracture present Ears: hearing grossly normal bilaterally Face/Nose/Sinus: Normal external nose present Face and sinus: normal facial exam and sinuses nontender Mouth: Yes Normal oral and palatal mucosa present Teeth and gingiva: dentition normal Throat: posterior oropharynx normal Eyes: General: appearance normal, both eyes and all related structures Visual Amanda: normal visual amanda by confrontation Alignment and Position: alignment normal Periorbital: periorbital findings normal Eyelids: eyelids normal Conjunctivae: conjunctivae normal Sclera: sclerae normal Cornea: corneas normal Pupils: Equal, round and reactive pupils present EOM: EOMs intact bilaterally Neck: Neck: normal visual inspection Thyroid: thyroid normal Carotids: normal carotid upstroke Chest: Chest palpation & inspection: normal inspection of the chest Breast/axilla inspection: normal inspection of the breasts Breast/axilla palpation: normal palpation of the breasts Resp: Effort & Inspection: normal respiratory effort Auscultation: clear to auscultation bilaterally Cardio: Jugular venous distension: no JVD Palpation: normal PMI Rate: regular rate Rhythm: regular rhythm GI: Inspection: normal to inspection Percussion: Yes normal to percussion Auscultation: normal bowel sounds Rectal Exam: abnormal sphincter tone, Abnormal stool present and mass Back/Spine/Pelvis: Back: no CVA tenderness Skin: General skin exam: normal color Lesions: no lesions Rashes: no rashes Trauma: no lacerations or abrasions Wounds: no wounds Hair: normal Nails: normal Neuro: General: oriented to person, oriented to place, oriented to time and patient oriented x3 Cranial nerves: Yes CN's II-XII intact bilaterally Cognition (Neuro): normal cognition Speech: normal speech Gait exam (Neuro): Normal gait present Extrem: General: normal to inspection Right upper extremity: normal to inspection Left upper extremity: normal to inspection Right lower extremity: normal to inspection Psych: Appearance: grossly normal Mental Status: mental status grossly normal Speech and movement: Normal speech and movement present Affect: normal affect Attitude: cooperative Thought process: Normal thought process present Thought content: Yes Normal thought content present and Yes Depersonalization present Course Vital Signs Vital signs: Vital Signs Temperature 97.7 F 02/27/24 16:45 Pulse Rate 71 02/27/24 16:45 Respiratory Rate 16 02/27/24 16:45 Blood Pressure 137/58 L 02/27/24 16:45 Pulse Oximetry 98 02/27/24 16:45 Oxygen Delivery Room Air 02/27/24 16:45 Temperature 97.7 F 02/27/24 16:45 Pulse Rate 67 02/27/24 18:30 Respiratory Rate 17 02/27/24 18:30 Blood Pressure 162/72 H 02/27/24 18:30 Pulse Oximetry 99 02/27/24 18:30 Oxygen Delivery Room Air 02/27/24 18:30 Medical Decision Making MDM Narrative Medical decision making narrative: patient has only been constipated for the past 2 days he has only tried 1 cap of MiraLax which he tried about 4 hours before he came into the emergency depart ment. As stated he is on a constipated for 2 days. He has not tried anything else. He is also dehydrated as well. Taking hold down oral liquids and foods just fine he has no nausea vomiting just the constipation. Will give him a a suppository and MiraLax as well as milk of magnesia. This all worked and he was able to pass stool and can be safely discharged home. Differential Diagnosis Differential Diagnosis: Constipation Medical Records Medical records reviewed: Yes I reviewed the external patient's medical records. Vital Signs Vital Signs: Vital Signs Temperature 97.7 F 02/27/24 16:45 Pulse Rate 71 02/27/24 16:45 Respiratory Rate 16 02/27/24 16:45 Blood Pressure 137/58 L 02/27/24 16:45 Pulse Oximetry 98 02/27/24 16:45 Oxygen Delivery Room Air 02/27/24 16:45 Temperature 97.7 F 02/27/24 16:45 Pulse Rate 67 02/27/24 18:30 Respiratory Rate 17 02/27/24 18:30 Blood Pressure 162/72 H 02/27/24 18:30 Pulse Oximetry 99 02/27/24 18:30 Oxygen Delivery Room Air 02/27/24 18:30 Lab Data Lab results reviewed: Yes I reviewed the patient's lab results. ABG Data Attestation: I personally reviewed and interpreted this ABG as follows: Imaging Data Attestation: I personally reviewed and interpreted this imaging study as follows: Discharge Plan Discharge Clinical Impression: Acute constipation, Dehydration Patient Disposition: Home, Self-Care Condition: Stable Instructions: Constipation (ED) Patient Language: Anguill[place] Prescriptions: No Action atorvastatin 40 mg tablet 40 mg PO QPM metoprolol succinate 50 mg tablet extended release 24 hr 50 mg PO DAILY meloxicam 15 mg tablet meloxicam 7.5 mg tablet amlodipine 10 mg tablet 10 mg PO DAILY losartan 100 mg tablet 100 mg PO DAILY escitalopram oxalate 10 mg tablet 10 mg PO DAILY hydrocodone-acetaminophen 5-325 mg tablet 1 tablet PO Q8H PRN (Reason: pain) Qty: 14 0RF ibuprofen 800 mg tablet 800 mg PO TID PRN (Reason: pain) Qty: 30 0RF Follow-up/Referrals: Jinny,Rashi Burgos MD [Primary Care Provider] - Time of Disposition: 20:31
[2024-02-27 18:30] VITALS: BP 162/72; PULSE 67; RESP 17; O2SAT 99
--- NOTE | 2024-02-27 18:37 | PC.NURSE ---
patient was able to pass small amount of stool.
--- NOTE | 2024-02-27 20:20 | PC.NURSE ---
ERP aware of pt's blood pressure. No new orders.
[2024-02-27 20:23] VITALS: BP 155/70; PULSE 85; RESP 16; TEMP 36.8; O2SAT 99
== END 2024-02-27 20:23 | disposition home or self-care (01) ==
PROVIDERS: Emergency Provider Family Medicine; PCP Family Medicine
DX: K59.00 Constipation, unspecified (principal); E86.0 Dehydration
CPT/HCPCS: 99283; A9270

== ENCOUNTER 2024-04-09 08:12 | Outpatient (RCR) | payer MEDICARE, SELFPAY ==
--- NOTE | 2024-04-09 08:08 | PTOPEVAL1 ---
Assessment and note entered by Clotilde Granger DPT Evaluation Information Assessment Status Evaluation Diagnosis low back pain, falls ICD-10 Condition Codes (PT) Pain in low back M54.50 Other ICD-10 Condition Codes ( G95.9 PT) Subjective Information Patient reports he has had back pain for over 4 years but has had increasing falls lately. Most recently he fell down a flight of stairs. In the last 6 months he has had 3 falls. He has a small base quad cane that he uses for long distances. He furniture walks around the home. He reports back pain is in the center of the lumbar spine. He reports back pain is present most when he stands for ~1 hour. He denies any LE numbness or tingling . He is most concerned with balance and walking. Reported Pain Level Pain Score 1: Self Report Assessment PT Clinical Summary Mr. Dunne is a 73 year old male who presents to PT with low back pain and frequent falls. He demonstrates decreased B LE strength, impaired posture and impaired balance. He is having difficulty with standing for prolonged periods of time and is falling frequently around the home. He would benefit from skilled PT to address impairments and return to PLOF. Plan of Care Interventions Electrical Stimulation,Gait Training,Hot Pack/Cold Pack PT Services Indicated Yes Treatment Frequency and 2x weekly for 12 visits Duration These treatments will address the objective and functional deficits as defined above. The patient will be advanced safely and appropriately in order for the patient to progress towards his/her prior level of function. Additional exercises will be introduced and as well as a comprehensive home exercise program upon discharge, if needed, ?to ensure carryover of functional gains achieved in the clinic. This treatment plan has been reviewed and agreement upon by the patient.
--- NOTE | 2024-05-27 10:27 | OPREHPOC ---
Outpatient Therapy Plan of Care This is a Multidisciplinary Plan of Care that may contain components documented by all disciplines (PT, OT, and ST.) PT Problem 1 PT Problem #1 Knowledge Deficit PT Goal 1 Goal / Goal Update patient to demonstrate independence with HEP Target Visit 6 Progress Met PT Problem 2 PT Problem #2 Impaired Strength PT Goal 1 Goal / Goal Update patient to demonstrate 5/5 B LE strength to improve ability to stand for prolonged periods of time Target Visit 12 Progress Not Met PT Problem 3 PT Problem #3 Pain PT Goal 1 Goal / Goal Update patient to report no increase in low back pain when standing for 1 hour Target Visit 12 Progress Not Met PT Problem 4 PT Problem #4 Impaired Functional Mobility PT Goal 1 Goal / Goal Update 1. Patient to ambulate 100' during 6 min walk test with no AD device to decrease fall risk -met 2. Patient to score >24 on Tinetti balance test to demonstrate low fall risk at home -met Target Visit 12 Progress Met
--- NOTE | 2024-05-27 10:27 | PTOPPROG ---
Assessment and note entered by Marley Tierney, PT Evaluation Information Assessment Status Progress Diagnosis low back pain, falls ICD-10 Condition Codes (PT) Pain in low back M54.50 Other ICD-10 Condition Codes ( G95.9 PT) Subjective Information Luciano reports his back is feeling good and he denies pain this morning. He uses a straight point cane for uneven surfaces, otherwise he walks without an AD. He feels like his balance has been improving and was able to stand for nearly an hour the other day but had to sit due to pain. Assessment PT Clinical Summary Mr. Dunne has attended 10 total skilled physical therapy visits addressing low back pain and frequent falls. Since beginning therapy he has made improvements in his balance but still lacks confidence in his ability to walk and balance without falling. He will benefit from continued skilled PT intervention to improve on these deficits to perform functional tasks with less pain and improved safety. Plan of Care Interventions Electrical Stimulation,Gait Training,Hot Pack/Cold Pack,Manual Therapy,Mechanical Traction,Neuro Re- education,Patient/Caregiver Education,Therapeutic Activities,Therapeutic Exercise,Self-Care/Home Management PT Services Indicated Yes Treatment Frequency and Continue per original POC Duration These treatments will address the objective and functional deficits as defined above. The patient will be advanced safely and appropriately in order for the patient to progress towards his/her prior level of function. Additional exercises will be introduced and as well as a comprehensive home exercise program upon discharge, if needed, ?to ensure carryover of functional gains achieved in the clinic. This treatment plan has been reviewed and agreement upon by the patient.
--- NOTE | 2024-06-03 10:40 | OPREHPOC ---
Outpatient Therapy Plan of Care This is a Multidisciplinary Plan of Care that may contain components documented by all disciplines (PT, OT, and ST.) PT Problem 1 PT Problem #1 Knowledge Deficit PT Goal 1 Goal / Goal Update patient to demonstrate independence with HEP Target Visit 6 Progress Met PT Problem 2 PT Problem #2 Impaired Strength PT Goal 1 Goal / Goal Update patient to demonstrate 5/5 B LE strength to improve ability to stand for prolonged periods of time Target Visit 12 Progress Met PT Problem 3 PT Problem #3 Pain PT Goal 1 Goal / Goal Update patient to report no increase in low back pain when standing for 1 hour Target Visit 12 Progress Met PT Problem 4 PT Problem #4 Impaired Functional Mobility PT Goal 1 Goal / Goal Update 1. Patient to ambulate 100' during 6 min walk test with no AD device to decrease fall risk -met 2. Patient to score >24 on Tinetti balance test to demonstrate low fall risk at home -met Target Visit 12 Progress Met
--- NOTE | 2024-06-03 10:40 | PTOPDC ---
Assessment and note entered by Marley Tierney, PT Evaluation Information Assessment Status Discharge Diagnosis low back pain, falls ICD-10 Condition Codes (PT) Pain in low back M54.50 Other ICD-10 Condition Codes ( G95.9 PT) Subjective Information Luciano reports his back continues to feel good and his pain is negligible. He feels most stiff in the morning but it subsides with movement. Reported Pain Level Pain Score 0: Self Report Assessment PT Clinical Summary Mr. Dunne has attended 12 total skilled PT visits for low back pain and imbalance. Since beginning therapy his low back pain is now negligible. He still notes occasionally feeling imbalanced but he has made progress in both his lower extremity strength and static/dynamic balance activities. He has met all therapeutic goals set for him and is appropriate for discharge from skilled physical therapy services this date. Plan of Care PT Services Indicated No
== END 2024-06-03 21:54 | disposition home or self-care (01) ==
LOC: CHSPT 08:12
PROVIDERS: PCP Family Medicine
DX: G95.9 Disease of spinal cord, unspecified (principal)
CPT/HCPCS: 97110; 97112; 97150; 97161; 97530

== ENCOUNTER 2024-11-18 07:34 | Outpatient (RCR) | payer MEDICARE, SELFPAY ==
--- NOTE | 2024-11-18 08:07 | OPREHPOC ---
Outpatient Therapy Plan of Care This is a Multidisciplinary Plan of Care that may contain components documented by all disciplines (PT, OT, and ST.) PT Problem 1 PT Problem #1 Knowledge Deficit PT Goal 1 Goal / Goal Update Independent and compliant with HEP. Target Visit 2 PT Problem 2 PT Problem #2 Impaired Strength PT Goal 1 Goal / Goal Update Improve bilat hip strength to 5/5. Target Visit 12 PT Problem 3 PT Problem #3 Impaired Balance PT Goal 1 Goal / Goal Update Pt to improve Tinetti score to 24 to indicate low fall risk. Pt to improve 5xSTS score to 10 seconds or less. Pt to improve TUG time to 12 seconds or less with improved turning speed. Target Visit 12 PT Problem 4 PT Problem #4 Impaired Gait PT Goal 1 Goal / Goal Update Pt to demonstrate improved step/stride length and knee extension during gait for improved efficiency . Target Visit 12
--- NOTE | 2024-11-18 08:07 | PTOPEVAL1 ---
Assessment and note entered by Marley Tierney, PT Evaluation Information Assessment Status Evaluation ICD-10 Condition Codes (PT) Repeated falls R29.6,Difficulty Walking R26.2, Weakness R53.1 Other ICD-10 Condition Codes ( R26.81 PT) Onset 11/07/2024 Subjective Information Pt reports he's been having problems with his balance. He states he recently was at a soccer game and he lost his balance, and he didn't fall but he had to shuffle his feet and catch himself repeatedly so that he didn't fall. He also reports he can get down to the floor to grab things but he is unable to get back up. He denies falls but feels like his balance is worsening to the point where he will start falling if he doesn't address it. He notes difficulty with ambulating on uneven surfaces, and also gets unbalanced when turning and standing upright after bending forward. He does not recall any losses of balance in dark environments. Reported Pain Level Pain Score 0: Self Report Assessment PT Clinical Summary Mr. Dunne is a 74 yo male presenting to skilled PT evaluation for imbalance. He demonstrates bilateral hip weakness, gait deficits such as reduced step/stride length and lack of full knee ext, and impaired balance as evidenced by Tinetti. He demonstrates the most imbalance when on uneven surfaces and also demonstrates difficulty getting up from the ground. Skilled PT intervention is indicated to address these deficits to improve balance in unstable environments and reduce fall risk. Plan of Care Interventions Gait Training,Hot Pack/Cold Pack,Manual Therapy, Neuro Re-education,Patient/Caregiver Education, Therapeutic Activities,Therapeutic Exercise,Self- Care/Home Management PT Services Indicated Yes Treatment Frequency and 2x/week for 12 visits Duration These treatments will address the objective and functional deficits as defined above. The patient will be advanced safely and appropriately in order for the patient to progress towards his/her prior level of function. Additional exercises will be introduced and as well as a comprehensive home exercise program upon discharge, if needed, ?to ensure carryover of functional gains achieved in the clinic. This treatment plan has been reviewed and agreement upon by the patient.
--- NOTE | 2024-12-20 07:58 | OPREHPOC ---
Outpatient Therapy Plan of Care This is a Multidisciplinary Plan of Care that may contain components documented by all disciplines (PT, OT, and ST.) PT Problem 1 PT Problem #1 Knowledge Deficit PT Goal 1 Goal / Goal Update Independent and compliant with HEP. Target Visit 2 Progress Met PT Problem 2 PT Problem #2 Impaired Strength PT Goal 1 Goal / Goal Update Improve bilat hip strength to 5/5. -partially met Target Visit 12 Progress Partially Met PT Problem 3 PT Problem #3 Impaired Balance PT Goal 1 Goal / Goal Update Pt to improve Tinetti score to 24 to indicate low fall risk. -met Pt to improve 5xSTS score to 10 seconds or less. - met Pt to improve TUG time to 12 seconds or less with improved turning speed. -met Target Visit 12 Progress Met PT Goal 2 Goal / Goal Update Pt to improve 5xSTS score to 8 seconds or less. Pt to improve TUG time to 10 seconds or less. Target Visit 12 PT Problem 4 PT Problem #4 Impaired Gait PT Goal 1 Goal / Goal Update Pt to demonstrate improved step/stride length and knee extension during gait for improved efficiency . Target Visit 12 Progress Met
--- NOTE | 2024-12-20 07:58 | PTOPPROG ---
Assessment and note entered by Marley Tierney, PT Evaluation Information Assessment Status Progress ICD-10 Condition Codes (PT) Repeated falls R29.6,Difficulty Walking R26.2, Weakness R53.1 Other ICD-10 Condition Codes ( R26.81 PT) Onset 11/07/2024 Subjective Information Pt reports feeling like his balance and his walking have both gotten better and he reports about 50% improvement. He states he is happy with his progress but he is not where he needs to be in terms of comfort when navigating crowded environments and uneven surfaces. He takes his cane with him when he goes to soccer games and occasionally when working in his yard. Assessment PT Clinical Summary Mr. Dunne has attended 10 skilled PT visits addressing gait and balance deficits. Since beginning PT one month ago he has made improvements in his overall balance, gait and hip strength. He has met goals for Tinetti, TUG, and 5xSTS and is appropriate for progression in these goals. He also demonstrates improved hip abduction strength but still demonstrates bilat hip flexion weakness (R>L). Continued skilled PT is indicated to make further progress toward goals and to further improve his dynamic and reactionary balance to improve safety and avoid future falls. Plan of Care Interventions Gait Training,Hot Pack/Cold Pack,Manual Therapy, Neuro Re-education,Patient/Caregiver Education, Therapeutic Activities,Therapeutic Exercise,Self- Care/Home Management PT Services Indicated Yes Treatment Frequency and Continue POC Duration These treatments will address the objective and functional deficits as defined above. The patient will be advanced safely and appropriately in order for the patient to progress towards his/her prior level of function. Additional exercises will be introduced and as well as a comprehensive home exercise program upon discharge, if needed, ?to ensure carryover of functional gains achieved in the clinic. This treatment plan has been reviewed and agreement upon by the patient.
--- NOTE | 2025-01-03 07:53 | OPREHPOC ---
Outpatient Therapy Plan of Care This is a Multidisciplinary Plan of Care that may contain components documented by all disciplines (PT, OT, and ST.) PT Problem 1 PT Problem #1 Knowledge Deficit PT Goal 1 Goal / Goal Update Independent and compliant with HEP. Target Visit 2 Progress Met PT Problem 2 PT Problem #2 Impaired Strength PT Goal 1 Goal / Goal Update Improve bilat hip strength to 5/5. -partially met Target Visit 12 Progress Partially Met PT Problem 3 PT Problem #3 Impaired Balance PT Goal 1 Goal / Goal Update Pt to improve Tinetti score to 24 to indicate low fall risk. -met Pt to improve 5xSTS score to 10 seconds or less. - met Pt to improve TUG time to 12 seconds or less with improved turning speed. -met Target Visit 12 Progress Met PT Goal 2 Goal / Goal Update Pt to improve 5xSTS score to 8 seconds or less. - met Pt to improve TUG time to 10 seconds or less. -not met Target Visit 12 Progress Partially Met PT Problem 4 PT Problem #4 Impaired Gait PT Goal 1 Goal / Goal Update Pt to demonstrate improved step/stride length and knee extension during gait for improved efficiency . Target Visit 12 Progress Met
--- NOTE | 2025-01-03 07:53 | PTOPDC ---
Assessment and note entered by Marley Tierney, PT Evaluation Information Assessment Status Discharge ICD-10 Condition Codes (PT) Repeated falls R29.6,Difficulty Walking R26.2, Weakness R53.1 Other ICD-10 Condition Codes ( R26.81 PT) Onset 11/07/2024 Rob Wolf presents for his 12th skilled PT visit addressing gait and balance. He continues to go to sporting events and takes his cane for safety. He does still note difficult getting up the bleachers because they are high steps and they do not have railings. He does feel like his balance has improved and while it's not perfect, he would like to discontinue PT this date as he plans to change his insurance. Reported Pain Level Pain Score 0: Self Report Assessment PT Clinical Summary Mr. Dunne has attended 12 skilled PT visits addressing gait and balance. Since beginning PT he has made great progress in both his static and dynamic balance as reflected in his improvements in Tinetti score, TUG and 5xSTS time. He also demonstrates improved hip strength and gait efficiency. While he does still have occasional losses of balance when outdoors and in crowded environments, he does utilize his cane to improve safety. He has been independent with his HEP and is motivated to continue his HEP on his own for the time being. He has met or partially met all therapeutic goals and will be discharged from skilled PT this date. Plan of Care PT Services Indicated No
== END 2025-01-03 16:35 | disposition home or self-care (01) ==
LOC: CHSPT 07:34
DX: R26.81 Unsteadiness on feet (principal); R29.6 Repeated falls
CPT/HCPCS: 97110; 97112; 97161; 97530

== ENCOUNTER 2025-01-03 08:08 | Outpatient (CLI) | payer MEDICARE, SELFPAY ==
--- OUTSIDE RECORDS SUMMARY | 2025-01-03 08:14 | XMS_ITS | Clinical Summary ---
Author Organization [facility] Address [address] [place] [address] Phone Care Team Providers Care And Taxi Instructor Bus Trolley Name Role Phone Rashi Stearns MD Primary Care Provider [phone] Allergies No known active allergies Medications atorvastatin (LIPITOR) 40 mg tablet Take 40 mg by mouth daily. 07/31/2018 Active escitalopram oxalate (LEXAPRO) 10 mg tablet Take 5 mg by mouth daily. 11/05/2018 Active aspirin (LILA CHEWABLE) 81 mg Tablet, Chewable Take 1 Tablet (81 mg) by mouth daily with breakfast. 30 Tablet 12/21/2018 Active Fish Oil-[facility]-3 Fatty Acids 435-880 mg Capsule Take 225 mg by mouth daily. Active losartan (COZAAR) 100 mg tablet Take 100 mg by mouth daily. 04/20/2020 Active amLODIPine (NORVASC) 10 mg tablet Take 10 mg by mouth daily. 01/21/2020 Active hydroCHLOROthiaz woody 25 mg tablet Take 25 mg by mouth daily. 01/21/2020 Active acetaminophen (TYLENOL) 325 mg tablet Take 650 mg by mouth every 6 hours as needed. 10/29/2019 Active clopidogreL (PLAVIX) 75 mg Tablet Take 75 mg by mouth daily. 11/17/2021 Active metoprolol succinate (TOPROL XL) 50 mg Extended Release 24 hour tablet Take 50 mg by mouth daily. 11/19/2021 Active Active Problems Problem Noted Date Diagnosed Date Benign hypertension 12/19/2018 Normocytic anemia 12/19/2018 Hyponatremia 12/19/2018 Alcohol use disorder, mild, abuse 12/19/2018 Tobacco abuse 12/19/2018 Neurological symptoms 12/19/2018 History of TIA (transient ischemic attack) and s troke 12/18/2018 Stenosis of left carotid artery Social History Tobacco Use Types Packs/Day Years Used Date Smoking Tobacco: Never Smokeless Tobacco: Never Alcohol Use Standard Drinks/Week Comments Yes 0 (1 standard drink = 0.6 oz pur e alcohol) Sex and Gender Information Value Date Recorded Sex Assigned at Not on file Legal Sex Male 8:09 PM AOC DIRECTOR COMBAT OPERATIONS OFFICER Gender Identity Not on file Sexual Orientation Not on file Last Filed Vital Signs Vital Sign Reading Time Taken Comments Blood Pressure 116/70 04/13/2022 10:38 AM AOC DIRECTOR COMBAT OPERATIONS OFFICER Pulse 75 04/13/2022 10:38 AM AOC DIRECTOR COMBAT OPERATIONS OFFICER Temperature 36.4 C (97.6 F) 04/13/2022 10:38 AM AOC DIRECTOR COMBAT OPERATIONS OFFICER Respiratory Rate 17 04/13/2022 10:38 AM AOC DIRECTOR COMBAT OPERATIONS OFFICER Oxygen Saturation 100% 04/13/2022 10:38 AM AOC DIRECTOR COMBAT OPERATIONS OFFICER Inhaled Oxygen Concentration - - Weight 80.3 kg (177 lb) 04/13/2022 10:38 AM AOC DIRECTOR COMBAT OPERATIONS OFFICER Height 172.7 cm (5' 8) 04/13/2022 10:38 AM AOC DIRECTOR COMBAT OPERATIONS OFFICER Body Mass Index 26.91 04/13/2022 10:38 AM AOC DIRECTOR COMBAT OPERATIONS OFFICER Plan of Treatment Health Maintenance Due Date Last Done Comments COLORECTAL SCREENING 10/07/1995 Colorectal Cancer Screening 10/07/1995 FIT-DNA Q 3 years 10/07/1995 FIT/FOBT Q 1 year 10/07/1995 Flex Sig/CT Colonography Q 5 years 10/07/1995 ZOSTER VACCINE (2 of 3) 01/16/2012 11/21/2011 DTAP/TDAP/TD VACCINES (2 - T d or Tdap) 01/12/2022 01/13/2012, 02/15/2010 INFLUENZA VACCINE (#1) 2024 , 12/01/2020, 11/14/2019, Additional history exists COVID-19 Vaccine ( - 2024-2 6 season) 2024 05/20/2021, 12/01/2020, 05/16/2020, Additional history exists RSV VACCINE (60+ or ) (1 - 1-dose 75+ series) 2025 PNEUMOCOCCAL VACCINE 50+ YEARS Completed 08/23/2019 , 07/25/2018 Insurance MEDICARE PART A AND B [facility] [id number] Advance Directives For more information, please contact: [phone] * Full Code (Latest Code Status on File) Date Activated Date Inactivated Comments 12/18/2018 11:32 PM 12/20/2018 1:27 PM Care Teams And Taxi Instructor Bus Trolley Relationship Specialty Start Date End Date Rashi Stearns MD PCP - General Family Practice 12/18/18
--- OUTSIDE RECORDS SUMMARY | 2025-01-03 08:14 | XMS_ITS | Encounter Summary ---
Author Organization [facility] Address [address] [place] [id number] Care Team Providers Care Literature Professor Name Role Phone Niya Martinez NP Primary Care Provider [phone] Yoel Holder MD Unavailable [phone] Randi Qureshi MD Unavailable Encounter Details Date Type Department Care Team (Late st Contact Info) Description 12/09/2024 Results Follow-Up [facility] Primary Care at [address] [address] Niya Martinez NP [address] [place] [address] [address] [place] [address] EMG/NCV - Social History Tobacco Use Types Packs/Day Years Used Date Smoking Tobacco: Never Smokeless Tobacco: Current Chew Alcohol Use Standard Drinks/Week Comments Yes 1 (1 standard drink = 0.6 oz pur e alcohol) social PHQ-2 Answer Date Recorded PHQ-2 Total Score (If total score is 3 or more points, staff should administer the PHQ-9) 0 12/02/2024 AUDIT-C Answer Date Recorded Q1: How often do you have a drink containing alc ohol? 2-4 times a month 12/02/2024 Q2: How many drinks containi ng alcohol do you have on a typical day when you are drinking? 1 or 2 12/02/2024 Q3: How often do you have si x or more drinks on one occasion? Never 12/02/2024 Sex and Gender Information Value Date Recorded Sex Assigned at Not on file Legal Sex Male 8:55 PM STUDENT FINANCIAL AID MANAGER Gender Identity Male 04/21/2020 4:22 PM STUDENT FINANCIAL AID MANAGER Sexual Orientation Not on file documented as of this encounter Miscellaneous Notes * Result Encounter Note - Lissett Montaño MA - 12/10/2024 11:08 AM CDT Changed hand referral to keira pt was given phone number to schedule. documented in this encounter Plan of Treatment Not on file documented as of this encounter Visit Diagnoses Not on filedocumented in this encounter Care Teams Literature Professor Relationship Specialty Start Date End Date Niya Martinez NP [address] [facility] [address] [place] [address] PCP - General Internal Medicine 12/02/24 Yoel Holder MD [facility] [address] [place] [address] Cardiology 12/02/24 Randi Qureshi MD [address] [place] [address] Referring Physician Vascular Surgery 12/02/24 documented as of this encounter
--- OUTSIDE RECORDS SUMMARY | 2025-01-03 08:14 | XMS_ITS | Clinical Summary ---
Author Organization [facility] Address [address] [place] [address] Care Team Providers Care Keymodule Assembly Machine Tender Name Role Phone Rashi Stearns MD Primary Care Provider [phone] Randi Qureshi MD Unavailable [phone] Cristian Alvarez MD Unavailable Yoel Holder MD Unavailable [phone] Source Comments [facility],non-owned Affiliates and Associated Physician Practices is amultiple site organization consisting of ambulatory clinics and hospital sitesin [place], [place], [place] and [place]. This disclosure is being madepursuant to the Care Everywhere program and may not contain all information available regarding this patient. Last updated 17.[facility] Allergies No known active allergies Medications * Be aware that medications may not be up to date on this document. Alwaysverify current medications with the patient. acetaminophen (Tylenol) 500 MG tablet Take 2 (two) tablets by mouth every 8 hours Maximum allowable Acetaminophen amount = 4 Grams (4000 mg) / 24 hours. 10/19/19 24 Active vitamin D3 (Cholecalciferol) 25 MCG (1000 UNITS) tablet Take 2 (two) tablets by mouth once daily 10/20/19 24 Active aspirin (Aspirin) 81 MG chew tablet Take 1 (one) tablet by mouth once daily 90 tablet 02/15/19 25 Active metoprolol succinate XL 24hr (Toprol XL) 50 MG tabletIndications: Essential hypertension TAKE 1 TABLET BY MOUTH EVERY DAY 90 tablet 4 02/18/19 25 Active calcium carbonate (Caltrate) 600 MG tablet Take 1 (one) tablet by mouth daily with food Active Melatonin 10-10 MG 03/31/19 25 Active Iron-Vit C-Vit A16-Oskut Acid (Gentle Iron) 28-60-0.008-0.4 MG 02/16/19 25 Active Magnesium 400 MG 02/13/19 25 Active escitalopram (Lexapro) 10 MG tabletIndications: Anxiety TAKE 1 TABLET BY MOUTH EVERY DAY 90 tablet 3 05/28/19 25 Active Misc Natural Products (GLUCOSAMINE CHOND COMPLEX/MSM PO) 07/08/19 25 Active atorvastatin (Lipitor) 40 MG tabletIndications: Hyperlipidemia, unspecified hyperlipidemia type TAKE 1 TABLET BY MOUTH EVERYDAY AT BEDTIME 100 tablet 3 10/30/19 25 Active Active Problems Problem Noted Date Diagnosed Date Paroxysmal atrial fibrillation 02/27/2024 Near syncope 02/17/2024 Hemothorax on right 02/17/2024 Acute blood loss anemia 02/17/2024 Hemothorax 02/17/2024 Acute hypoxic respiratory failure 02/14/2024 Pleural effusion, bilateral 02/14/2024 History of recent fall 02/14/2024 Atrial fibrillation with RVR 02/13/2024 Laceration of left orbit 10/19/2023 Acute pain 10/19/2023 DISH (diffuse idiopathic skeletal hyperostosis) 10/19/2023 Traumatic pneumothorax, initial encounter 2023 Fall, initial encounter 10/17/2023 Closed fracture of multiple ribs of both sides 0 10/17/2023 Pneumothorax, unspecified type 10/17/2023 Cerebrovascular disease 02/23/2023 Memory deficit 02/23/2023 Unsteady gait 06/13/2022 02/23/2023 Tremor 02/21/2022 Left Facial droop 08/05/2021 Acute left-sided weakness 08/05/2021 Slurred speech 08/05/2021 Ataxia of both arms 08/05/2021 Right facial numbness 08/05/2021 Hyperlipidemia 08/05/2021 History of carotid endarterectomy 08/05/2021 TIA (transient ischemic attack) 08/05/2021 Atherosclerosis of aorta 12/10/2019 Overview (12/10/2019): 09/30/19 Ct Angio Brain neck stroke There is atherosclerotic disease of the aortic arch History of right-sided carotid endarterectomy Stenosis of left carotid artery 12/28/2018 Normocytic anemia 12/19/2018 History of transient ischemic attack (TIA) 12/18 HTN (hypertension) 07/25/2018 Hyperlipidemia 07/25/2018 Tobacco user 07/25/2018 Resolved Problems Problem Noted Date Diagnosed Date Resolved Date Elevated troponin 02/14/2024 05/07/2024 CISCO (iron deficiency anemia) 02/14/2024 02/16/2024 Closed fracture of nasal bon e, initial encounter 10/17/2023 05/07/2024 Closed fracture of multiple ribs, unspecified laterality, initial encounter 10/17/2023 05/07/2024 Facial droop 08/04/2021 08/05/2021 Headache, unspecified headache type 10/31/2019 05/20/2021 Lightheadedness 09/30/2019 12/01/2020 Left-sided weakness 09/30/2019 12/02/19 21 Lower urinary tract symptoms (LUTS) 08/27/2018 05/20/2021 Overview (08/28/2018): 07/30/18 Normal u/a 08/28/18 PVR 300ml. Start flomax Assessment & Plan (08/28/2018 10:49 AM CDT): - Prostate cancer screening 08/27/2018 Overview (08/27/2018): PSA 0.7 in 07/2018 Assessment & Plan (08/28/2018 10:49 AM CDT): - Allergic rhinitis 07/25/2018 05/20/2021 Lumbago 07/25/2018 12/01/2020 Arthralgia of hip 09/16/2010 12/01/2020 TIA (transient ischemic attack) 08/23/2019 Encounters Date Type Department Care Team Description 12/02/2024 Travel 11/18/2024 Results Follow-Up [facility] [address] [place] [address] [address] [place] [address] Yoel Holder MD 11/15/2024 Patient Outreach [facility] - Care Coordination [address] [place] [id number] Edwina Gutierrez Outreach Preventive Care 11/07/2024 12:15 PM CDT Office Visit [facility] [address] [place] [address] Yoel Holder MD Paroxysmal atrial fibrillation (HCC) (Primary Dx); Unsteadiness on feet; Recurrent falls; Hyperglycemia; Dyslipidemia; Essential hypertension; Overweight; Presence of Watchman left atrial appendage closure device 10/28/2024 Refill [facility] - Internal Medicine [address] [place] [address] [place] [address] Rashi Stearns MD Refill Request from Last 3 Months Immunizations Immunization Administration Dates Next Due COVID MODERNA 12+ yr 50mcg/0.5mL 05/07/2024 COVID PFIZER 12+YR 30MCG/0.3mL 02/23/2023 COVID PFIZER BIVALENT 12Y+ 30mcg/0.3ML Covid Moderna primary monova lent 12+ yr 0.5mL 12/20/2023 Covid Pfizer primary Monoval ent 12+ yr 0.3ml 05/20/2021 Covid Pfizer primary monoval ent 12+ yr 0.3mL Purple cap 12/01/2020,05/16/2020,04/25/2020 HEP A PED/ADULT VACCINE 12/22/2010,02/17/2010 HEP A PEDS 2 DOSE 12/22/2010,02/17/2010 HEP B VACCINE ADOL/ADULT 2 DOSE 08/30/2010,05/11,02/17/2010 HEP B VACCINE, RECOMBINANT 08/30/2010,05/11/2010 ,02/17/2010 INFLUENZA VACCINE, ADJUVANTE D, QUADR. (FLUAD QUADRIVALENT; 65Y+) (AIIV4) 02/23/2023,11/19/2021,12/01/2020 INFLUENZA VACCINE, ADJUVANTE D, TRIV. (FLUAD TRIVALENT; 65Y+) (AIIV3) 12/20/2023 INFLUENZA VACCINE, HIGH-DOSE , QUADR. (FLUZONE HIGH-DOSE QUADRIVALENT; 65Y+), 0.7 ML (HD-IIV4) 11/20/2017 MMR 07/08/2014,06/16/2014 PNEUMOCOCCAL PPSV23 07/25/2018 Pneumococcal Pcv13 Conj 08/23/2019 TD VACCINE 02/15/2010 TDAP (7yrs+) 10/16/2023,08/08/2022,01/13/2012 TDAP, HISTORIC VACCINE 01/13/2012 TETANUS 02/15/2010 ZOSTER VACCINE, LIVE 11/21/2011 iNFLUENZA VACCINE, RECOM-LIRA, QUADR. (FLUBLOCK QUADRIVALENT; 18Y+) (RIV4) 11/14/2019,12/28/2018 Family History Medical History Relation Name Comments CAD (Coronary Artery Disease) Brother 1 Timo s/p Bypass CAD (Coronary Artery Disease) Brother 2 Saqib s/p Bypass Cancer - Lung Father Dementia Mother Hypertension Mother Cancer - Uterine Sister 2 Zoe Schizophrenia Son 1 Timo Doing better o n meds Relation Name Status Comments Brother 1 Timo Alive Brother 2 Saqib Alive Father (Age 62) Mother Lives with Robert sotelo's sister Sister 1 Divina Alive Sister 2 Zoe Alive Sister 3 Alla Alive Son 1 Timo Alive Son 2 Valentín Alive Son 3 Navneet Alive Son 4 Samuel Alive Social History Tobacco Use Types Packs/Day Years Used Date Smoking Tobacco: Never Passive Smoke Exposure: Past Smokeless Tobacco: Current Chew Tobacco Cessation:Ready to Q uit: No; Counseling Given: Yes Comments:started chewing in high school, trying to quit, can every 5 days Alcohol Use Standard Drinks/Week Comments Yes 1 (1 standard drink = 0.6 oz pur e alcohol) 0-1 in a week AUDIT-C Answer Date Recorded Q1: How often do you have a drink containing alc ohol? Monthly or less 04/25/2024 Q2: How many drinks containi ng alcohol do you have on a typical day when you are drinking? 3 or 4 04/25/2024 Q3: How often do you have si x or more drinks on one occasion? Less than monthly 04/25/2024 Overall Financial Resource Strain (CARDIA) Answe r Date Recorded How hard is it for you to pa y for the very basics like food, housing, medical care, and heating? Not hard at all 04/26/2024 PHQ-2 Answer Date Recorded Patient Health Questionnaire-2 Score 0 05/07/2024 [facility] Occup[facility] - Occupational Stress Questionnaire Answer Date Recorded Do you feel stress - tense, restless, nervous, or anxious, or unable to sleep at night because your mind is troubled all the time - these days? Not at all 04/26/2024 Hunger Vital Sign Answer Date Recorded Within the past 12 months, y ou worried that your food would run out before you got the money to buy more. Never true 04/27/19 25 Within the past 12 months, t he food you bought just didn't last and you didn't have money to get more. Never true 04/26/2024 PRAPARE - Transportation Answer Date Re corded In the past 12 months, has l ack of transportation kept you from medical appointments or from getting medications? No 04/13 In the past 12 months, has l ack of transportation kept you from meetings, work, or from getting things needed for daily living? No 04/26/2024 Housing Stability Vital Sign Answer Benny e Recorded In the last 12 months, was t here a time when you were not able to pay the mortgage or rent on time? No 10/18/2023 In the last 12 months, how many places have you lived? 1 10/18/2023 In the last 12 months, was t here a time when you did not have a steady place to sleep or slept in a senior care (including now)? No 10/18/2023 Housing Stability Vital Sign Answer Benny e Recorded In the last 12 months, was t here a time when you were not able to pay the mortgage or rent on time? No 04/26/2024 In the past 12 months, how m any times have you moved where you were living? 1 04/26/2024 At any time in the past [address] [facility], were you homeless or living in a senior care (including now)? No 04/26/2024 Sex and Gender Information Value Date Recorded Sex Assigned at Not on file Legal Sex Male 6:15 AM ETL ARCHITECT Gender Identity Not on file Sexual Orientation Not on file Occupation Industry Job Start Date Job End Date Retired Not on file Not on file Not on file Last Filed Vital Signs Vital Sign Reading Time Taken Comments Blood Pressure 146/80 11/07/2024 12:06 PM CDT Pulse 71 11/07/2024 12:06 PM CDT Temperature 36.1 C (97 F) 08/28/2024 10:08 AM CDT Respiratory Rate 16 06/26/2024 2:25 PM CDT Oxygen Saturation 97% 11/07/2024 12:06 PM CDT Inhaled Oxygen Concentration 40% 02/18/2024 5 :32 AM ETL ARCHITECT Weight 78.3 kg (172 lb 9.6 oz) 11/07/2024 12:06 PM CDT Height 167.6 cm (5' 6) 11/07/2024 12:06 PM CDT Body Mass Index 27.86 11/07/2024 12:06 PM CDT Plan of Treatment Upcoming Encounters Date Type Department Care Team (Late st Contact Info) Description 05/22/2025 1:15 PM CDT Office Visit [facility] [place] [address] Yoel Holder MD [address] [place] [phone] 08/20/2025 9:00 AM CDT Appointment [facility] [place] [address] Randi Qureshi MD [address] [place] [address] 2L [place] [address] 08/20/2025 10:00 AM CDT Appointment [facility] [address] [place] [address] Randi Qureshi MD [facility] 2L [place] [address] 08/20/2025 11:45 AM CDT Office Visit [facility] - Vascular Surgery [address] [place] [address], [place] [address] Randi Qureshi MD [address] [place] [address] Health Maintenance Due Date Last Done Comments COLOGUARD (AGES 45-75) - COLON CA SCREENING 1950 CT COLONOGRAPHY - COLON CA SCREENING 1950 FIT - COLON CA SCREENING 1950 FLEX SIG - COLON CA SCREENING 1950 Respiratory Syncytial Virus (RSV) Vaccine Pt: or over 60 yrs (1 - Risk 50-74 years 1-dose series) 2000 ZOSTER VACCINE (2 of 3) 01/16/2012 11/21/2011 COVID-19 VACCINE ( season) 2024 05/07/2024, 12/20/2023, 02/23/2023, Additional history exists MEDICARE AWV 12 MONTHS 05/07/2025 05/07/2024, 02/23/2023, 11/19/2021, Additional history exists COLON MONITORING 09/03/2028 09/03/2018, 09/03/2018 COLONOSCOPY - COLON CA SCREENING 09/03/2028 09/03/2018, 09/03/2018, 09/03/2018 Colorectal Cancer Screening 09/03/2028 DTAP/TDAP/TD VACCINES (7 - Td or Tdap) 10/15/2033 10/16/2023, 08/08/2022, 01/13/2012, Additional history exists HEPATITIS B VACCINE Completed 08/30/2010, 05/11/2010, 02/17/2010 HEPATITIS C SCREENING Completed 07/30/2018 PNEUMOCOCCAL VACCINE 50+ Completed 08/23/2019, 07/14 BONE DENSITY TESTING Completed 11/08/2023 DEPRESSION SCREENING Completed 02/17/2024, 02/23/2023, 05/24/2022, Additional history exists INFLUENZA VACCINE Completed 11/05/2024, , 02/23/2023, Additional history exists HIB VACCINE Aged Out No longer eligi ble based on patient's age to complete this topic HPV VACCINE Aged Out No longer eligi ble based on patient's age to complete this topic MENINGOCOCCAL (Group B) VACCINE SHARED DECISION-MAKING Aged Out No longer eligible based on patient's age to complete this topic MENINGOCOCCAL GROUPS A/C/Y/W VACCINE Aged Out No longer eligible based on patient's age to complete this topic Medical Devices Implanted Type Area Utility Technician Device Identifier Shelf Expiration Date Model / Serial / Lot Patch Cv 6x1cm Vsgrd Bvn Pricrd Strl Implanted:Qty: 1 on 02/22/2019 by Randi Qureshi MD at [facility] [employer] 09/26/2023 [id number] / / [id number] Screw 2.5mm 3.4mm 16mm Erasto Comp Slf Drl Implanted:Qty: 1 on 12/18/2020 by Mari Lucas DPM at [facility] Right: Foot [employer] [id number] / / Plate 110mm 18 Hl Fx Bone Implanted:Qty: 1 on 02/17/2024 by Luis Machuca MD at [facility] Right: Chest [employer] 07/13/2024 [id number] / / [id number] Amplatzer Amulet Implanted:Qty: 1 on 04/25/2024 by Sachin Sawyer MD at [facility] [employer] [id number] 03/15/2027 9-[facility] 200 7-020 / [id number] / [id number] Explanted Type Area Utility Technician Device Identifier Shelf Expiration Date Model / Serial / Lot Photofix Decellularixed Bovine Pericardium Explanted:Qty: 1 on 02/22/2019 by Randi Qureshi MD at [facility] [employer] [id number] / [id number] / [id number] 0.9 K-Wire Explanted:Qty: 1 on 12/18/2020 by Mari Lucas DPM at [facility] Right: Foot [employer] [id number] / / Procedures Procedure Name Priority Date/Time Associated Diagnosis Comments HEMOGLOBIN A1C Routine 11/13/2024 9:13 AM CDT Hyperglycemia DEXA BONE DENSITY AXIAL SKELETON Routine 11/08/2023 8:18 AM CDT Osteoporosis screening Other specified disorders of bone density and structure, other site ENDOSCOPY, COLON, SCREENING Routine 09/03/2018 10:43 AM CDT HEPATITIS C AB W RFLX VERIFICATION Routine 07/30/2018 8:10 AM CDT Encounter for hepatitis C screening test for low risk patient from Last 3 Months or Most Recently Relevant to Health Maintenance Results * (ABNORMAL) HEMOGLOBIN A1C (11/13/2024 9:13 AM CDT) Hemoglobin A1c 5.9(H) 4.8 - 5.6 % [facility] INSURANCE BILL Comment: Prediabetes: 5.7 - 6.4 Diabetes: >6.4 Glycemic control for adults with diabetes: <7.0 Blood BLOOD SPECIMEN / Unknown 11/13/2024 9:13 AM CDT 11/13/2024 Narrative [facility] INSURANCE BILL - 11/14/2024 12:07 AM CDT Performed at: [address] [place] [id number] Dye Machine Tender: Alan Coffey PhD, Phone: [phone] us Yoel Holder MD LAB - CHEMISTRY ORDERABLES Fin al Result Performing Organization Address City/State/[facility] Co de Phone Number [facility] INSURANCE BILL [address] [place] [address] * Dexa Bone Density Axial Skeleton (11/08/2023 8:18 AM CDT) Anatomical Region Laterality Modality Mammography 11/08/2023 11:4 2 AM CDT Narrative 11/08/2023 2:18 PM CDT Bone density study (DEXA): HISTORY: Encounter for screening for osteoporosis COMPARISON: No available comparison LUMBAR SPINE (L1-L4): Bone mineral density (g/cm2): 1.399 Current T-score: 1.8 HIPS: Bone mineral density (g/cm2): 0.869 Current T-score: -1.1 FRAX 10-YEAR PROBABILITY OF FRACTURE: Major Osteoporotic: 8.0% Hip: 2.4% ASSESSMENT: Osteopenia Please see the PACS images for additional details. World Health Organization definitions of standard deviations relative to the mean T-score: Normal bone density = -1.0 and above Mild osteopenia = -1.0 to -1.5 Moderate osteopenia = -1.5 to -2.0 Severe osteopenia = -2.0 to -2.5 Osteoporosis = -2.5 and below > Interpreting Provider: Tayo Sanchez JR, MD on 11/08/2023 2:18 PM Procedure Note Tayo Sanchez MD - 11/08/2023 Bone density study (DEXA): HISTORY: Encounter for screening for osteoporosis COMPARISON: No available comparison LUMBAR SPINE (L1-L4): Bone mineral density (g/cm2): 1.399 Current T-score: 1.8 HIPS: Bone mineral density (g/cm2): 0.869 Current T-score: -1.1 FRAX 10-YEAR PROBABILITY OF FRACTURE: Major Osteoporotic: 8.0% Hip: 2.4% ASSESSMENT: Osteopenia Please see the PACS images for additional details. World Health Organization definitions of standard deviations relative to the mean T-score: Normal bone density = -1.0 and above Mild osteopenia = -1.0 to -1.5 Moderate osteopenia = -1.5 to -2.0 Severe osteopenia = -2.0 to -2.5 Osteoporosis = -2.5 and below > Interpreting Provider: Tayo Sanchez JR, MD on 11/08/2023 2:18 PM us Julieta Malik SKEIN STRAIGHTENER-IT TELECOM TECHNICIAN DEXA ORDERABLES Final R esult * ENDOSCOPY, COLON, SCREENING (09/03/2018 10:43 AM CDT) Report Endoscopy POC _ Patient Name: Luciano Dunne Procedure Date: 09/03/2018 10:43 AM Date of : 1950 Admit Type: Outpatient Age: 67 Room: ROOM 3 Gender: Male Attending MD: Timo Joel MD _ Procedure: Colonoscopy Indications: Screening for colorectal malignant neoplasm Providers: Timo Joel MD, Sisi Bell, AYO, Chyna Brar RN, Viviane Lynn CRNA (Anesthesia Staff) Referring MD: Rashi Stearns (Referring MD) Medicines: Monitored Anesthesia Care Complications: No immediate complications. _ Procedure: Pre-Anesthesia Assessment: - Prior to the procedure, a History and Physical was performed, and patient medications and allergies were reviewed. The patient's tolerance of previous anesthesia was also reviewed. The risks and benefits of the procedure and the sedation options and risks were discussed with the patient. All questions were answered, and informed consent was obtained. Prior Anticoagulants: The patient has taken no previous anticoagulant or antiplatelet agents. ASA Grade Assessment: II - A patient with mild systemic disease. After reviewing the risks and benefits, the patient was deemed in satisfactory condition to undergo the procedure. After I obtained informed consent, the scope was passed under direct vision. Throughout the procedure, the patient's blood pressure, pulse, and oxygen saturations were monitored continuously. The Colonoscope was introduced through the anus and advanced to the cecum, identified by appendiceal orifice and ileocecal valve. The colonoscopy was performed without difficulty. The patient tolerated the procedure well. The quality of the bowel preparation was good. The ileocecal valve, appendiceal orifice, and rectum were photographed. Findings: The perianal and digital rectal examinations were normal. Multiple small-mouthed diverticula were found in the sigmoid colon. Internal hemorrhoids were found during retroflexion. The hemorrhoids were small. _ Impression: - Diverticulosis in the sigmoid colon. - Internal hemorrhoids. - No specimens collected. Recommendation: - High fiber diet. - Continue present medications. - Repeat colonoscopy in 10 years for surveillance. Procedure Code(s): --- Professional --- 18415 --- Technical --- 50211 Diagnosis Code(s): --- Professional --- Z12.11 K64.8 K57.30 --- Technical --- Z12.11 K64.8 K57.30 CPT copyright 2017 [employer]. All rights reserved. The codes documented in this report are preliminary and upon cutter down review may be revised to meet current compliance requirements. __ Timo Joel MD 09/03/2018 10:59:43 AM This report has been signed electronically. Number of Addenda: 0 Note Initiated On: 09/03/2018 10:43 AM Estimated Blood Loss: Estimated blood loss: none. [facility] ENDOSCOPY 09/03/2018 10:4 3 AM CDT us Timo Joel MD GI PROCEDURE ORDERABLES Edit ed Result - Final [facility] ENDOSCOPY * HEPATITIS C AB W RFLX VERIFICATION (07/30/2018 8:10 AM CDT) Hepatitis C Antibody 0.1 0.0 - 0.9 s/co ratio [facility] INSURANCE BILL Comment:FASTING Blood BLOOD SPECIMEN / Unknown 07/30/2018 8:10 AM CDT 07/30/2018 Narrative Resulting Agency Comment [facility] [address] [facility] [phone] us Rashi Stearns MD LAB - CHEMISTRY ORDERABLES Fin al Result [facility] INSURANCE BILL [address] [place] [address] from Last 3 Months or Most Recently Relevant to Health Maintenance Insurance MEDICARE [facility] MEDICARE [facility] MEDICARE [facility] Advance Directives Documents on File Type Date Recorded 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 Adv Directive/Living Will/POA 02/27/2019 8:24 PM * Full Code (Latest Code Status on File) Date Activated Date Inactivated Comments 04/25/2024 6:00 PM 04/26/2024 5:16 PM * Full Code Date Activated Date Inactivated Comments 04/25/2024 5:56 PM 04/25/2024 6:00 PM * Full Code Date Activated Date Inactivated Comments 02/18/2024 1:06 AM 02/21/2024 4:39 PM * Full Code Date Activated Date Inactivated Comments 02/17/2024 3:09 PM 02/18/2024 1:06 AM * Full Code Date Activated Date Inactivated Comments 02/14/2024 2:31 AM 02/16/2024 2:39 PM Care Teams Keymodule Assembly Machine Tender Relationship Specialty Start Date End Date Rashi Stearns MD [address] [place] [address] PCP - General Family Medicine 07/25/18 Yoel Holder MD [address] [phone] PCP - Attributed-MSSP 08/13/24 Randi Qureshi MD [address] [place] [address] [address] [place] [address] Surgeon Vascular Surgery 12/01/20 Cristian Alvarez MD [address] [place] [address] Surgeon Orthopedic Surgery 02/23/23
--- OUTSIDE RECORDS SUMMARY | 2025-01-03 08:14 | XMS_ITS | Clinical Summary ---
Author Organization [facility] Address [address] [place] [id number] Care Team Providers Care Jewelry Maker Name Role Phone Niya Martinez NP Primary Care Provider [phone] Yoel Holder MD Unavailable [phone] Randi Qureshi MD Unavailable [phone] Allergies Active Allergy Reactions Criticality Noted Date Comments Cat Dander Wheezing,Sneezing Medium Medications atorvastatin (LIPITOR) 40 mg tablet Take 40 mg by mouth nightly 9 Active metoprolol XL (TOPROL-XL) 50 mg extended release tablet Take 1 tablet (50 mg total) by mouth daily 5 Active aspirin 81 mg chewable tablet Take 1 tablet (81 mg total) by mouth 9 Active magnesium aspart,citrate, oxide 400 mg magnesium capsule 5 Active cholecalciferol 25 mcg (1,000 unit) tablet Take 2 tablets (2,000 Units total) by mouth daily 4 Active melatonin-pyrid oxine HCl, B6, 10-10 mg tablet, IR & ER, biphasic 5 Active iron bis-glycinat/vi t C/FA/B12 (GENTLE IRON ORAL) Take by mouth Active calcium carbonate (OS-MINE) 1,500 mg (600 mg elemental) tablet Take 1 tablet (1,500 mg total) by mouth Active mupirocin (BACTROBAN) 2 % ointment Apply topically 3 (three) times a day Active triamcinolone (KENALOG) 0.1 % cream Apply topically 2 (two) times a day Active escitalopram (LEXAPRO) 10 mg tablet Take 1 tablet (10 mg total) by mouth daily 90 tablet 3 5 Active bisacodyl EC (DULCOLAX EC) 5 mg EC tabletIndicatio ns:constipation Take as directed by office for colonoscopy prep. 4 tablet 5 Active ondansetron (ZOFRAN) 4 mg tabletIndicatio ns:Nausea and vomiting, unspecified vomiting type,Screen for colon cancer Take 1 tablet (4 mg) total 30 minutes before starting colonoscopy prep. Use the 2nd tablet as needed for nausea and vomiting. 2 tablet 5 Active GaviLyte-G 236-22.74-6.74 -5.86 gram solution TAKE 4,000 ML BY MOUTH ONCE FOR 1 DOSE. 5 Active polyethylene glycol (GoLYTELY) 236-22.74-6.74 -5.86 gram solutionIndicat ions:Screen for colon cancer Take 4,000 mL by mouth once for 1 dose 4000 mL 5 12/10/19 25 Active Problems Problem Noted Date Diagnosed Date Neuropathy 12/09/2024 Screen for colon cancer 12/09/2024 Nondependent tobacco use disorder 12/02/2024 Assessment & Plan (12/02/2024 11:20 AM CDT): Chewing tobacco. Encourage cessation. Lumbago 12/02/2024 Essential hypertension 12/02/2024 Assessment & Plan (12/02/2024 12:53 PM CDT): Hypertension Hypertension managed with metoprolol. Blood pressure and heart rate well controlled. - Continue metoprolol 50 mg extended release once daily. Allergic rhinitis 12/02/2024 Primary osteoarthritis involving multiple joints 12/02/2024 Paroxysmal atrial fibrillation 02/27/2024 Assessment & Plan (12/02/2024 11:20 AM CDT): Orders: CBC with auto differential; Future Comprehensive metabolic panel; Future DISH (diffuse idiopathic skeletal hyperostosis) 10/19/2023 Cerebrovascular disease 02/23/2023 Tremor 02/21/2022 Atherosclerosis of aorta 12/10/2019 Overview (12/02/2024): 09/30/19 Ct Angio Brain neck stroke There is atherosclerotic disease of the aortic arch History of right-sided carotid endarterectomy Stenosis of left carotid artery 12/28/2018 Normocytic anemia 12/19/2018 Assessment & Plan (12/02/2024 11:20 AM CDT): Orders: CBC with auto differential; Future Alcohol use disorder, mild, abuse 12/19/2018 History of TIA (transient ischemic attack) and s troke 12/18/2018 Tobacco user 07/25/2018 Hyperlipidemia 07/25/2018 Assessment & Plan (12/02/2024 11:20 AM CDT): Orders: Lipid panel; Future Benign hypertension 07/25/2018 Resolved Problems Problem Noted Date Diagnosed Date Resolved Date Spasm of muscle 12/02/2024 12/02/2024 Shortness of breath 12/02/2024 12/03/19 Chest pain 12/02/2024 12/02/2024 Near syncope 02/17/2024 12/02/2024 Acute blood loss anemia 02/17/202411/14 Pleural effusion, bilateral 02/14/2024 12/02/2024 Acute hypoxic respiratory failure 02/14/2024 12/02/2024 Atrial fibrillation with RVR 02/13/2024 12/02/2024 Laceration of left orbit 10/19/2023 Acute pain 10/19/2023 12/02/2024 Pneumothorax, traumatic 10/17/202311/14 Fall 10/17/2023 12/02/2024 Closed fracture of multiple ribs of both sides 10/17/2023 12/02/2024 Memory deficit 02/23/2023 12/02/2024 Unsteady gait 06/13/2022 12/02/2024 TIA (transient ischemic attack) 08/05/2021 12/02/2024 Slurred speech 08/05/2021 12/02/2024 Right facial numbness 08/05/20212024 Facial droop 08/05/2021 12/02/2024 Acute left-sided weakness 08/05/2021 Ataxia of both arms 08/05/2021 12/03/19 Neurological symptoms 12/19/20182024 Hyponatremia 12/19/2018 12/02/2024 Arthralgia of hip 09/16/2010 12/02/2024 Encounters Date Type Department Care Team Description 12/27/2024 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 Office Visit [facility] [address] [place] [address] [place] [address] Jt Srinivasan MD 12/09/2024 Results Follow-Up [facility] Primary Care at [address] [phone] Niya Martinez NP EMG/NCV - 12/09/2024 Orders Only [facility] Gastroenterology at [address] [place] [address] Eddie Huitron MD Screen for colon cancer (Primary Dx); Nausea and vomiting, unspecified vomiting type 12/05/2024 12:19 PM CDT - 12/05/2024 11:59 PM CDT Hospital Encounter [facility] Neurological Disorders Testing [address] [place] [address] Neuropathy; Unspecified mononeuropathy of bilateral lower limbs Discharge Disposition: Discharge to home or self care 12/02/2024 10:30 AM CDT Office Visit [facility] Primary Care at [address] [phone] Niya Martinez NP BMI 28.0-28.9,adult (Primary Dx); Essential hypertension; History of TIA (transient ischemic attack); Presence of Watchman left atrial appendage closure device; Trigger middle finger of left hand; Neuropathy; Unspecified mononeuropathy of bilateral lower limbs; Paroxysmal atrial fibrillation (HCC); Normocytic anemia; Nondependent tobacco use disorder; Mixed hyperlipidemia; Prostate cancer screening; Pre-diabetes; Screen for colon cancer; Iron deficiency anemia due to chronic blood loss 11/11/2024 3:15 PM CDT Office Visit [facility] Medical [facility] at [address] [phone] Guillermo Singer NP Allergic contact dermatitis, unspecified trigger (Primary Dx) 10/15/2024 12:30 PM CDT Office Visit [facility] at [address] [phone] Guillermo Singer NP Dermatitis (Primary Dx) from Last 3 Months Immunizations Immunization Administration Dates Next Due Hep A, Unspecified 12/22/2010,02/17/2010 Influenza Virus Vaccine Trivalent Mdv 12/20/2023 Influenza, Quadrivalent, Rec ombinant, Egg Free, Preservative Free, Intramuscular 11/14/2019,12/28/2018 Influenza, Trivalent, High D ose, Split, Preservative Free, Intramuscular 11/05/2024,11/20/2017,11/04/2016 MMR 07/08/2014,06/16/2014 Pfizer SARS-CoV-2 Monovalent Vaccination (12+ Yrs) PURPLE 05/16/2020,04/25/2020 Pneumococcal Conjugate PCV 13 08/23/2019 Pneumococcal Polysaccharide PPV23 07/25/2018 RSV, Bivalent, Protein Subun it Rsvpref, Diluent (Abrysvo) 05/09/2024 Td, Unspecified 02/15/2010 Tdap 10/16/2023,08/08/2022,01/13/2012 ZOSTER LIVE 11/21/2011 Surgical History Surgery Date Site/Laterality Comments OTHER SURGICAL HISTORY 04[facility] Medical History Medical History Date Comments Hypertension Anemia Hyperlipidemia Family History Medical History Relation Name Comments Heart disease Brother Hyperlipidemia Brother Cancer Father Lung cancer Hyperlipidemia Father COPD Mother Hyperlipidemia Mother Arthritis Sister Cancer Sister Diabetes Sister Mental illness Son Relation Name Status Comments Brother Father Mother Sister Son Social History Tobacco Use Types Packs/Day Years Used Date Smoking Tobacco: Never Smokeless Tobacco: Current Chew Tobacco Cessation:Ready to Q uit: Not Asked Alcohol Use Standard Drinks/Week Comments Yes 1 [...] on file Legal Sex Male 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[employer] Gender Identity Male 04/21/2020 4:22 PM [employer]GSHEAD MAT ASSEMBLER Sexual Orientation Not on file Last Filed Vital Signs Vital Sign Reading Time Taken Comments Blood Pressure 124/60 12/02/2024 10:41 AM CDT Pulse 62 12/02/2024 10:41 AM CDT Temperature 36.4 C (97.5 F) 12/02/2024 10:41 AM CDT Respiratory Rate 16 12/02/2024 10:41 AM CDT Oxygen Saturation 99% 12/02/2024 10:41 AM CDT Inhaled Oxygen Concentration - - Weight 77.6 kg (171 lb) 12/02/2024 10:41 AM CDT Height 166.4 cm (5' 5.5) 12/02/2024 10:41 AM CD T Body Mass Index 28.02 12/02/2024 10:41 AM CDT Plan of Treatment Health Maintenance Due Date Last Done Comments Colon Cancer Screening-Colonoscopy 1950 Hepatitis C Screening 1950 Zoster Vaccine (2 of 3) 01/16/2012 11/21/2011 Well Visit 65+ 10/07/2015 Covid-19 Vaccine ( season) 2025 11/05/2024, 05/07/2024, 12/20/2023, Additional history exists Depression Screening 12/02/2025 12/02/2024 Fall Risk Assessment 12/02/2025 12/02/2024 DTaP/Tdap/Td Vaccine (4 - Td or Tdap) 10/15/2033 10/16/2023, 08/08/2022, 01/13/2012, Additional history exists Pneumococcal vaccine 65+ Completed 08/23/2019, 07/14 Influenza Vaccine Completed 11/05/2024, , 02/23/2023, Additional history exists Hepatitis B Screening Discontinued Procedures Procedure Name Priority Date/Time Associated Diagnosis Comments EMG/NCV Routine 12/05/2024 2:03 PM CDT Neuropathy Unspecified mononeuropathy of bilateral lower limbs from Last 3 Months Results * EMG/NCV - (12/05/2024 2:03 PM CDT) Anatomical Region Laterality Modality EMG, EMG Narrative Procedure Note Rk Aponte MD - 12/05/2024 12:00 AM CDT REQUESTING PHYSICIAN Ms. Niya Martinez NP. INDICATIONS FOR STUDY Mr. Dunne is a 74-year-old with chief complaint of off-balance feelingand numbness especially in the bottom of feet. ELECTRODIAGNOSTIC REPORT Bilateral medial and lateral plantar orthodromic sensory nerve conductionstudies did not generate a response. Bilateral sural antidromic andbilateral superficial orthodromic sensory nerve conduction studiesrevealed normal SNAP peak latencies, SNAP peak amplitudes and SNCVs.Bilateral peroneal and tibial motor nerve conduction studies revealednormal distal latencies, compound motor action potential amplitudes, motornerve conduction velocities and F-wave latencies. EMG Concentric electrode sampled bilateral tibialis anterior, medialgastrocnemius, vastus medialis, peroneus longus, lumbar paraspinalmuscles. All muscles were assessed bilaterally. No abnormal insertion orspontaneous activity was noted. Motor unit potentials were normal. IMPRESSION This is an abnormal electrodiagnostic study with evidence of bilateralmedial and lateral plantar sensory neuropathy. There is no evidence of generalized sensory motor or peripheralneuropathy. Clinical correlation recommended. Job ID/Internal Job ID: [id number] Niya Martinez NP NEUROLOGY ORDERABLES Final Result from Last 3 Months Insurance MEDICARE [facility] [employer]ARE [facility] [employer] [facility] Care Teams Jewelry Maker Relationship Specialty Start Date End Date Niya Martinez NP [address] [facility] [address] [place] [address] PCP - General Internal Medicine 12/02/24 Yoel Holder MD [address] [facility] [address] [place] [address] Cardiology 12/02/24 Randi Qureshi MD [address] [place] [phone] Referring Physician Vascular Surgery 12/02/24
--- OUTSIDE RECORDS SUMMARY | 2025-01-03 08:14 | XMS_ITS | Encounter Summary ---
Author Organization [facility] Address [address] [place] [address] Care Team Providers Care Manager Underwriting Name Role Phone Rashi Stearns MD Primary Care Provider Randi Qureshi MD Unavailable [phone] Cristian Alvarez MD Unavailable Edwina Gutierrez Unavailable [phone] Yoel Holder MD Unavailable [phone] Encounter Details Date Type Department Care Team (Late st Contact Info) Description 11/18/2024 Results Follow-Up [facility] [address] [place] [address] [address] [place] [address] Yoel Holder MD [address] [place] [phone] Social History Tobacco Use Types Packs/Day Years Used Date Smoking Tobacco: Never Passive Smoke Exposure: Past Smokeless Tobacco: Current Chew Comments:started chewing in high school, trying to [...] Recorded Patient Health Questionnaire-2 Score 0 05/07/2024 [facility] - Occupational Stress [...] place to sleep or slept in a mcc (including now)? No 10/18/2023 Housing Stability Vital Sign Answer Benny e Recorded In the last 12 months, was t here a time when you were not able to pay the mortgage or rent on time? No 04/26/2024 In the past 12 months, how m any times have you moved where you were living? 1 04/26/2024 At any time in the past 12 [facility], were you homeless or living in a mcc (including now)? 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 Answer Date of Assessment Author No 04/26/2024 11:45 AM CDT Clarisa Garcia RN * Is person blind or have serious difficulty seeing? Answer Date of Assessment Author No 04/26/2024 11:45 AM CDT Clarisa Garcia RN * Does person have serious difficulty walking/climbing stairs? Answer Date of Assessment Author No 04/26/2024 11:45 AM CDT Clarisa Garcia RN * Does person have difficulty dressing/bathing? Answer Date of Assessment Author No 04/26/2024 11:45 AM CDT Clarisa Garcia RN * Does person have difficulty doing errands alone? Answer Date of Assessment Author No 04/26/2024 11:45 AM CDT Clarisa Garcia RN documented as of this encounter Mental Status * Does person have difficulty concentrating/remembering/making decisions? Answer Entry Date Author No 04/26/2024 11:45 AM CDT Clarisa Garcia RN documented in this encounter Progress Notes * Yoel Holdre MD - 11/18/2024 8:07 AM CDT Hemoglobin A1c consistent with prediabetes. Please find out if patient has any questions, concerns,or updates at this time. Thank you. documented in this encounter Plan of Treatment Upcoming Encounters Date Type Department Care Team (Late st Contact Info) Description 05/22/2025 1:15 PM CDT Office Visit [facility] [address] [place] [address] [address] [place] [address] Yoel Holder MD [address] [place] [address] [place] [phone] 08/20/2025 9:00 AM CDT Appointment [facility] [address] [place] [phone] Randi Qureshi MD [address] [place] [address] [address] [place] [phone] 08/20/2025 10:00 AM CDT Appointment [facility] [address] [place] [phone] Randi Qureshi MD [address] [place] [address] [address] [place] [phone] 08/20/2025 11:45 AM CDT Office Visit [facility] - Vascular Surgery [address] [place] [address], [place] [phone] Randi Qureshi MD [address] [place] [address] [address] [place] [phone] documented as of this encounter Visit Diagnoses Not on filedocumented in this encounter Care Teams Manager Underwriting Relationship Specialty Start Date End Date Rashi Stearns MD [address] [place] [phone] PCP - General Family Medicine 07/25/18 Yoel Holder MD [address] [place] [phone] PCP - Attributed-MSSP 08/13/24 Randi Qureshi MD [address] [place] [address] [address] [place] [phone] Surgeon Vascular Surgery 12/01/20 Cristian Alvarez MD [address] [place] [address] Surgeon Orthopedic Surgery 02/23/23 Edwina Gutierrez Care Coordination Specialist Care Management 11/15/24 12/30/24 documented as of this encounter
--- OUTSIDE RECORDS SUMMARY | 2025-01-03 08:14 | XMS_ITS | Encounter Summary ---
Author Organization [facility] Address [address] [place] [address] Care Team Providers Care Cardiovascular Technologist Name Role Phone Rashi Stearns MD Primary Care Provider [phone] Randi Qureshi MD Unavailable [phone] Rashi Stearns MD Unavailable Cristian Alvarez MD Unavailable Stella Sheilds RN Unavailable Unavailable Lynnette Hodgson RN Unavailable Edwina Gutierrez Unavailable [phone] Yoel Holder MD Unavailable [phone] Reason for Visit * Reason Onset Date Comments Scheduling 02/29/2024 Bautista Encounter Details Date Type Department Care Team (Late st Contact Info) Description 02/29/2024 Telephone [facility] - Cardiology [address] [facility], [facility] [address] [place] [address] Sachin Sawyer MD [address] [facility] [place] [address] Scheduling ([place]) Social History Tobacco Use Types Packs/Day Years Used Date Smoking Tobacco: Former Cigarettes Passive Smoke Exposure: Past Smokeless Tobacco: Current Chew Comments:started chewing in high school, trying to quit, can every 3 days Alcohol Use Standard Drinks/Week Comments Yes 21 (1 standard drink = 0.6 oz pu re alcohol) occassionally AUDIT-C Answer Date Recorded Q1: How often do you have a drink containing alc ohol? Monthly or less 02/19/2024 Q2: How many drinks containi ng alcohol do you have on a typical day when you are drinking? 1 or 2 02/19/2024 Q3: How often do you have si x or more drinks on one occasion? Never 02/19/2024 Overall Financial Resource Strain (CARDIA) Answe r Date Recorded How hard is it for you to pa y for the very basics like food, housing, medical care, and heating? Not hard at all 02/20/2024 PHQ-2 Answer Date Recorded Patient Health Questionnaire-2 Score 0 01/28/2024 [facility] [place] [facility] - Occupational Stress Questionnaire Answer Date Recorded Do you feel stress - tense, restless, nervous, or anxious, or unable to sleep at night because your mind is troubled all the time - these days? Not at all 02/20/2024 Hunger Vital Sign Answer Date Recorded Within the past 12 months, y ou worried that your food would run out before you got the money to buy more. Never true 02/19/19 25 Within the past 12 months, t he food you bought just didn't last and you didn't have money to get more. Never true 02/20/2024 PRAPARE - Transportation Answer Date Re corded In the past 12 months, has l ack of transportation kept you from medical appointments or from getting medications? No 08/2024 In the past 12 months, has l ack of transportation kept you from meetings, work, or from getting things needed for daily living? No 02/20/2024 Housing Stability Vital Sign Answer Benny e [...] to sleep or slept in a senior living (including now)? No 10/18/2023 Housing Stability Vital Sign Answer Benny e Recorded In the last 12 months, was t here a time when you were not able to pay the mortgage or rent on time? No 02/20/2024 In the past 12 months, how m any times have you moved where you were living? 1 02/20/2024 At any time in the past 12 m [facility], were you homeless or living in a senior living (including now)? 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 Answer Date of Assessment Author No 02/19/2024 11:12 PM Cassidy Beasley RN * Is person blind or have serious difficulty seeing? Answer Date of Assessment Author No 02/19/2024 11:12 PM APPLICATION INTEGRATION SPECIALIST Cassidy Leon RN * Does person have serious difficulty walking/climbing stairs? Answer Date of Assessment Author No 02/19/2024 11:12 PM Cassidy Beasley RN * Does person have difficulty dressing/bathing? Answer Date of Assessment Author No 02/19/2024 11:12 PM Cassidy Beasley RN * Does person have difficulty doing errands alone? Answer Date of Assessment Author No 02/19/2024 11:12 PM Cassidy Beasley RN documented as of this encounter Mental Status * Does person have difficulty concentrating/remembering/making decisions? Answer Entry Date Author No 02/19/2024 11:12 PM Cassidy Beasley RN documented in this encounter Miscellaneous Notes * Telephone Encounter - Jemma Perez RN - 02/29/2024 9:49 AM CST Contacted patient to discuss scheduling Watchman procedure. No answer (it looks like procedure at [facility] scheduled today). Left message with direct number to return call to discuss scheduling options. Liberatahart also sent to patient. Plan to schedule Watchman on 03/14/24 as second case. Awaiting confirmation from patient. Shared decision documentation requested from Dr. Holder. PAT request sent to department for phone review. Jemma Perez RN 02/29/2024 9:52 AM ICATION INTEGRATION SPECIALIST * Telephone Encounter - Jemma Perez RN - 02/29/2024 9:42 AM CST ----- Message from Sachin Sawyer MD sent at 02/28/2024 1:39 PM APPLICATION INTEGRATION SPECIALIST ----- Yaakov: He is an excellent candidate for Watchman. We will schedule expediently as you had requested when we first spoke. Jemma, how soon can you schedule him for Watchman with me? Thank you for referring him to us, Sachin Sawyer MD, MMM, FACC, [facility] Rita and Avinash Nicked Professor in Cardiology Director, Division of Cardiology, [facility] ICATION INTEGRATION SPECIALIST documented in this encounter Plan of Treatment Upcoming Encounters Date Type Department Care Team (Late st Contact Info) Description 05/22/2025 1:15 PM CDT Office Visit [facility] [address] [place] [address] [address] [place] [address] Yoel Holder MD [address] [place] [phone] 08/20/2025 9:00 AM CDT Appointment [facility] [place] [place] [address] Randi Qureshi MD [address] [place] [address] [address] [place] [id number] 08/20/2025 10:00 AM CDT Appointment [facility] [address] [place] [address] Randi Qureshi MD [address] [place] [address] [address] [place] [id number] 08/20/2025 11:45 AM CDT Office Visit [facility] - Vascular Surgery [address] [place] [address], [place] [address] Randi Qureshi MD [address] [place] [address] [address] [place] [phone] documented as of this encounter Visit Diagnoses Diagnosis Paroxysmal atrial fibrillation (HCC)- Primary Atrial fibrillation documented in this encounter Care Teams Cardiovascular Technologist Relationship Specialty Start Date End Date Rashi Stearns MD [address] [place] [address] PCP - General Family Medicine 07/25/18 Rashi Stearns MD [address] [place] [address] PCP - Attributed-MSSP 11/13/21 08/12/24 [place] [address] [place] [phone] PCP - Attributed-MSSP 08/13/24 Randi Qureshi MD [address] [place] [address] [address] [place] [phone] Surgeon Vascular Surgery 12/01/20 Cristian Alvarez MD [address] [place] [address] Surgeon Orthopedic Surgery 02/23/23 Stella Shields, cobol application developer 04/29/24 04/29/24 Lynnette Hodgson, AYO Math TutorWarp Splitter 07/03/24 08/21/24 Edwina Gutierrez Care Coordination Specialist Care Management 11/15/24 12/30/24 documented as of this encounter
[2025-01-03 08:40] LABS: Hematocrit 39.0 % (37.0-46.0); Hemoglobin 13.4 g/dL (12.4-15.3); Immature Granulocyte Percent A 0.6 % (0.0-0.0); Lymphocytes Absolute Auto 1.03 K/mm3 (1.10-4.50); Mean Corpuscular HGB Conc 34.4 g/dL (32-36); Mean Corpuscular Hemoglobin 31.5 pg (27.0-31.0); Mean Corpuscular Volume 91.8 fL (78.0-102.0); Nucleated Red Blood Cells Absolute Auto 0.00 K/mm3 (0.00-0.00); Nucleated Red Blood Cells Perc 0.0 % (0-0.0); Platelet Count Result 212 K/mm3 (150-420); Red Blood Count 4.25 M/mm3 (4.70-6.10); White Blood Count 6.5 K/mm3 (4.8-10.8)
[2025-01-03 09:02] LABS: Hemoglobin A1C 5.5 % (<5.7)
[2025-01-03 09:03] LABS: MALB Creatinine Ratio 108.4 mg/g (0-30)
[2025-01-03 09:08] LABS: Iron 96 ug/dL (49-181)
[2025-01-03 09:09] LABS: Alanine Aminotransferase 26 U/L (6-50); Albumin Level 4.9 g/dL (3.5-5.1); Alkaline Phosphatase 80 U/L (38-126); Anion Gap 12 mmol/L (4-12); Aspartate Amino Transferase 35 U/L (17-59); Bilirubin,Total 0.5 mg/dL (0.2-1.3); Blood Urea Nitrogen 30 mg/dL (9-20); Calcium 9.9 mg/dL (8.4-10.2); Carbon Dioxide 26 mmol/L (22-30); Chloride 102 mmol/L (98-107); Cholesterol 162 mg/dL (0-200); Estimated Glomerular Filt Rate > 60; Glucose 110 mg/dL (65-110); HDL Direct 52 mg/dL; Osmolality Calculated 297 mOsm/kg (285-295); Potassium 4.5 mmol/L (3.4-5.0); Sodium 140 mmol/L (137-145); Total Protein 7.8 g/dL (6.3-8.2); Triglycerides 172 mg/dL (<150)
[2025-01-03 09:26] LABS: Percent Iron Saturation 30 % (20-50)
[2025-01-03 09:47] LABS: Prostate Specific Antigen 0.7 ng/mL (< OR = 4.0)
[2025-01-03 09:51] LABS: Ferritin 67.80 ng/mL (11.1-264)
[2025-01-03 10:23] LABS: Vitamin B12 741.0 pg/mL (239-931)
== END 2025-01-03 08:09 | disposition home or self-care (01) ==
LOC: CHSLAB 08:11
PROVIDERS: PCP Nurse Practitioner; Visit Provider Nurse Practitioner
DX: I48.0 Paroxysmal atrial fibrillation (principal); D64.9 Anemia, unspecified; D50.0 Iron deficiency anemia secondary to blood loss (chronic); E78.2 Mixed hyperlipidemia; R73.03 Prediabetes; Z12.5 Encounter for screening for malignant neoplasm of prostate
CPT/HCPCS: 36415; 80053; 80061; 82043; 82607; 82728; 82746; 83036; 83540; 83550; 84153; 85025; G0103